=== PATIENT | female | born 1950 | race Caucasian/White ===

== ENCOUNTER 2016-07-16 10:16 | Inpatient (IN) | payer BC, OTHER ==
[~2016-07-16] VITALS: Ht 157.5 cm; Wt 65.3 kg
[2016-07-16] MEDS ORDERED: METF500T (10:50)
[2016-07-16] MEDS ORDERED: PRAV80TA2 (10:50)
[2016-07-16] MEDS ORDERED: NAPR500T2 (10:50)
[2016-07-16] MEDS ORDERED: ASMA110A (10:50)
[2016-07-16] MEDS ORDERED: DICY20TA11 (10:50)
[2016-07-16] MEDS ORDERED: MECL-68 (10:50)
[2016-07-16] MEDS ORDERED: OMEP20CA3 (10:50)
[2016-07-16] MEDS ORDERED: LOSA25TA8 (10:50)
[2016-07-16] MEDS ORDERED: FLUO20CA9 (10:50)
[2016-07-16] MEDS ORDERED: FLUT1SPR2 ×2 (10:50→14:17)
[2016-07-16] MEDS ORDERED: methylPREDNISolone INJ 125 MG/2 ML VIAL (J2930) IV ONE (11:45)
[2016-07-16] MEDS: IPRATROPIUM 0.5MG/ALBUTEROL 2.5MG INH SOL UD 3ML (DUONEB)(J7620) NEB PRN ×2 (12:08→12:29)
--- NOTE | 2016-07-16 12:08 | REP ---
Chest one-view HISTORY: Cough Comparison: None Increased density is present in the lower lobes consistent with bibasilar atelectasis or infiltrates. The heart is normal in size. The pulmonary vasculature is normal in appearance. Impression: Bibasilar atelectasis or infiltrates. Signed by Reginald Hart MD 07/16/2016 12:00 P
[2016-07-16 12:20] LABS: BASO % 0.6 % (0.0-1.0); EOS % 0.8 % (0.0-3.0); LARGE UNSTAINED CELL # 0.2 K/mm3 (0.0-0.4); LARGE UNSTAINED CELL % 3.2 % (0.0-4.0); LYMPH # 1.6 K/mm3 (1.5-4.5); LYMPH % 20.6 % (24.0-44.0); MEAN CORPUSCULAR HEMOGLOBIN 29.4 pg (27.0-33.0); MEAN CORPUSCULAR HGB CONC 32.8 g/dl (32.0-36.5); MEAN CORPUSCULAR VOLUME 89.6 fl (80.0-96.0); MONO # 0.3 K/mm3 (0.0-0.8); NEUTROPHILS # 4.8 K/mm3 (1.8-7.7); NEUTROPHILS % 69.8 % (36.0-66.0); PLATELET COUNT, AUTOMATED 233 k/mm3 (150-450); RED CELL DISTRIBUTION WIDTH 12.3 % (11.5-14.5); WHITE BLOOD COUNT 6.9 K/mm3 (4.0-10.0)
[2016-07-16 12:26] LABS: ABG BASE EXCESS -0.5 (-2.0-2.0); ABG HCO3 22.3 MEQ/L (22.0-26.0); ABG PARTIAL PRESSURE CO2 30.9 mmHg (35.0-45.0); ABG PARTIAL PRESSURE O2 83.1 mmHg (75.0-100.0); ABG TOTAL CO2 23.2 MEQ/L (23.0-31.0); ABG pH (ARTERIAL) 7.476 UNITS (7.350-7.450)
[2016-07-16 12:46] LABS: ALBUMIN 2.9 GM/DL (3.2-5.2); ALBUMIN/GLOBULIN RATIO 0.69 (1.00-1.93); ALKALINE PHOSPHATASE 129 U/L (45-117); ALT/SGPT 28 U/L (12-78); ANION GAP 11 MEQ/L (8-16); AST/SGOT 29 U/L (15-37); BILIRUBIN,DIRECT 0.2 MG/DL (0.0-0.2); BILIRUBIN,TOTAL 0.6 MG/DL (0.2-1.0); BLOOD UREA NITROGEN 18 MG/DL (7-18); CALCIUM LEVEL 8.2 MG/DL (8.8-10.2); CARBON DIOXIDE LEVEL 25 MEQ/L (21-32); CHLORIDE LEVEL 103 MEQ/L (98-107); CREATININE FOR GFR 0.92 MG/DL (0.55-1.02); GLOMERULAR FILTRATION RATE > 60.0 (>45); GLUCOSE, FASTING 187 MG/DL (80-110); POTASSIUM SERUM 3.5 MEQ/L (3.5-5.1); SODIUM LEVEL 139 MEQ/L (136-145); TOTAL PROTEIN 7.1 GM/DL (6.4-8.2)
[2016-07-16] MEDS ORDERED: ISOVUE-370 76% 100ML VIAL (Q9967) As Ordered ONE (12:56)
[2016-07-16] MEDS ORDERED: methylPREDNISolone INJ 125 MG/2 ML VIAL (J2930) IV SCH (14:00)
[2016-07-16] MEDS ORDERED: LevoFLOXacin IV 750 MG in APPROPRIATE DILUENT 1 EA IV ONE (14:15)
[2016-07-16] MEDS ORDERED: [UNRECOGNIZED DRUG - CODE] INH (14:17)
[2016-07-16] MEDS ORDERED: FLUO20CA8 PO (14:17)
[2016-07-16] MEDS ORDERED: BENT20TA PO (14:17)
[2016-07-16] MEDS ORDERED: CRAN1260 PO (14:22)
[2016-07-16] MEDS ORDERED: MECL-86 PO (14:22)
[2016-07-16] MEDS ORDERED: METF500T PO (14:22)
[2016-07-16] MEDS ORDERED: NAPR500T2 PO (14:22)
[2016-07-16] MEDS ORDERED: OMEP20CA3 PO (14:22)
[2016-07-16] MEDS ORDERED: PRAV80TA2 PO (14:22)
[2016-07-16] MEDS ORDERED: VITA200015 PO (14:22)
[2016-07-16] MEDS ORDERED: LOSA25TA8 PO (14:22)
--- NOTE | 2016-07-16 14:32 | REP ---
CT ANGIO CHEST: TECHNIQUE: Axial contrast enhanced images from the thoracic inlet to the upper abdomen using 100 mL Isovue 370 intravenous contrast material with multiplanar reformations. Extensive ground-glass opacities and interstitial opacities are seen bilaterally with evidence of peripheral honeycombing especially inferiorly and chronic fibrosis. There are bilateral bronchiectasis. The findings may simply be on a basis of chronic severe fibrosis but some degree of acute superimposed infiltrate cannot totally be excluded. There is no pleural or pericardial effusion. The heart does not appear to be significantly enlarged. There is no evidence of pulmonary embolism or aortic dissection. Thoracic aorta is normal in caliber. Small scattered lymph nodes are seen without significant mediastinal or hilar adenopathy. Tiny hypodensity in the left lobe of the liver may represent a tiny cyst but it is too small to characterize as it is less than 1 cm in diameter. 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 There is a left renal cyst. IMPRESSION: No evidence of pulmonary embolism. Severe fibrosis as discussed in detail above. Superimposed infiltrate in the lungs cannot totally be excluded. Signed by Garrett Keane MD 07/17/2016 04:43 P
[2016-07-16] MEDS ORDERED: DEXTROSE 50% 50 ML SYRINGE IV PRN (14:45)
[2016-07-16] MEDS ORDERED: IPRATROPIUM 0.5MG/ALBUTEROL 2.5MG INH SOL UD 3ML (DUONEB)(J7620) NEB PRN (14:45)
[2016-07-16] MEDS ORDERED: ACETAMINOPHEN TAB 650MG DOSE (2X325MG) PO PRN (14:45)
[2016-07-16] MEDS ORDERED: GLUCAGON FOR INJ 1 MG VIAL (J1610) SC PRN (14:45)
[2016-07-16] MEDS ORDERED: GLUCOSE 4 GM CHEW TABLET PO PRN (14:45)
[2016-07-16] MEDS ORDERED: NS 1,000 ML IV SCH (14:45)
--- NOTE | 2016-07-16 16:36 | HPEPDOC ---
General Date of Admission Jul 16, 2016 at 14:35 Chief Complaint The patient is a 65-year-old female Presented to the ER with complaints of shortness of breath and productive cough for 1 week duration. History of Present Illness Patient is a 65 year old female with a PMHx of COPD not on home oxygen , Vitamin D deficiency, GERD, DLP, DM2, HTN, Vertigo, IBS and arthritis who presented to the ER with complaints of increased shortness of breath with productive cough. She notes that over 1 week her SOB was worsening, associated with a productive cough with dark brown sputum. She notes that there is blood tinge to it as well which is new. She denies any fever or chills at home. She went to her physician in [place] and was found to be hypoxic in the office and was transferred her while on oxygen. Upon arrival to the ER she was taken off supplemental oxygen and she desaturated to 80%. She denies any lower extremity edema, inability to lay flat or waking up at night short of breath. She denies any chest pain or palpitations. She notes that she is compliant with her medications. Does not know when she last had a COPD exacerbation, but notes that she was diagnosed on 11/2015. She denies any recent viral illness. She denies any nausea, vomiting, abdominal pain, constipation, diarrhea or urinary symptoms. Home Medications Scheduled (Asmanex 7 Metered Doses) 110 Mcg/Inh Aer, 2 PUFFS INH BID, (Reported) Cholecalciferol (Vitamin D) 2,000 Unit Tab, 2,000 UNIT PO DAILY, (Reported) Cranberry (Cranberry Fruit Concentra) 12,600 Mg Cap, 12,600 MG PO DAILY, ( Reported) Dicyclomine HCl (Bentyl) 20 Mg Tab, 20 MG PO TID, (Reported) Fluoxetine Hcl (Fluoxetine) 20 Mg Cap, 20 MG PO DAILY, (Reported) Fluticasone Propionate (Fluticasone Propionate 0.05%) 120 [place]/16 Gm Naspr, 1 SPRAY NA DAILY, (Reported) PER NOSTRIL Losartan Potassium (Losartan Potassium) 25 Mg Tab, 25 MG PO QHS, (Reported) Meclizine HCl (Meclizine 25) 25 Mg Tab, 50 MG PO QHS, (Reported) Metformin Hydrochloride (Metformin HCl) 500 Mg Tab, 500 MG PO QHS, (Reported) Naproxen (Naproxen) 500 Mg Tab, 500 MG PO BID, (Reported) Omeprazole (Omeprazole) 20 Mg Cap, 20 MG PO BID, (Reported) Pravastatin Sodium (Pravastatin Sodium) 80 Mg Tab, 80 MG PO QHS, (Reported) Allergies Coded Allergies: Baclofen (Verified Allergy, Unknown, 07/16/16) Penicillins (Verified Allergy, Unknown, 07/16/16) Past Medical History Medical History COPD not on home oxygen, Vitamin D deficiency, GERD, DLP, DM2, HTN, Vertigo, IBS and arthritis Surgical History Tonsillectomy Appendectomy Hysterectomy Family History - Non-contributory Social History - Denies the use of alcohol or illicit drugs; Quit in 1990 Smoked since she was 17 at 1.5 ppd - Denies recent travel or sick contacts - Lives with daughter - Occupation: Prior restaurant cook / grocery - No exposure to asbestos or chemicals Review of Symptoms Other systems Constitutional: Denies weight loss, change in appetite, or recent trauma Eyes: No visual changes or eye pain Ears, Nose, Throat: Denies nose bleeds, or difficulty swallowing Cardiovascular: Denies chest pain, sweating, or orthopnea Respiratory: Positive cough, wheezing and shortness of breath GI: [place] nausea, vomiting, abdominal pain, diarrhea or constipation : Denies pain with urination or frequency Musculoskeletal: Denies joint pain or swelling Neuro / Psych: Denies muscle weakness or sensory loss Skin: No skin rashes noted All other review of systems negative; otherwise stated in history of present illness Vital Signs - Vitals: BP 140/75, HR 96, RR 20, Sat 95%NC2L, Temp 98.4F - General: Lying in bed, No acute distress, Speaking in full sentences, AAOx3 - HEENT: NC, AT, PERRLA, EOMI - CVS: Tachycardic, regular rhythm, +S1S2, - Lungs: Fair air entry bilaterally, Bilateral crackles / rhonchi appreciated, no wheezing noted at this time - Abdomen: Soft, Non-distended, Non-tender, + Bowel sounds x 4 - Extremities: + PPx4, No lower extremity edema, No calf tenderness - Neuro: No focal motor or sensory deficit - Skin: No visible rashes Laboratory Data Labs 24H Laboratory Tests 2 07/16/16 12:03: White Blood Count 6.9, Red Blood Count 4.03, Hemoglobin 11.8L, Hematocrit 36.1, Mean Corpuscular Volume 89.6, Mean Corpuscular Hemoglobin 29.4, Mean Corpuscular Hemoglobin Concent 32.8, Red Cell Distribution Width 12.3, Platelet Count 233, Neutrophils (%) (Auto) 69.8H, Lymphocytes (%) (Auto) 20.6L, Monocytes (%) (Auto) 5.0, Eosinophils (%) (Auto) 0.8, Basophils (%) (Auto) 0.6, Neutrophils # (Auto) 4.8, Lymphocytes # (Auto) 1.6, Monocytes # (Auto) 0.3, Eosinophils # (Auto) 0.0, Basophils # (Auto) 0.0, Large Unclassified Cells % 3.2 , Large Unclassified Cells # 0.2, D-Dimer, Quantitative 1448.7H, Anion Gap 11, Glomerular Filtration Rate > 60.0, Lactic Acid Level 2.6*H, Calcium Level 8.2L, Aspartate Amino Transf (AST/SGOT) 29, Alanine Aminotransferase (ALT/SGPT) 28, Alkaline Phosphatase 129H, Total Bilirubin 0.6, Direct Bilirubin 0.2, Total Creatine Kinase 95, Creatine Kinase MB 2.4, Creatine Kinase MB Relative Index 2.52, Troponin I 0.16H, B-Type Natriuretic Peptide 1540H, Total Protein 7.1, Albumin 2.9L, Albumin/Globulin Ratio 0.69L, Thyroid Stimulating Hormone (TSH) 1.300 07/16/16 12:09: Blood Gas Bicarbonate Standard 24.0, Arterial Blood pH 7.476H, Arterial Blood Partial Pressure CO2 30.9L, Arterial Blood Partial Pressure O2 83.1, Arterial Blood Total CO2 23.2, Arterial Blood HCO3 22.3, Arterial Blood Base Excess -0.5 , Arterial Blood Oxygen Saturation 95.5 07/16/16 14:34: Total Creatine Kinase 96, Creatine Kinase MB 2.3, Creatine Kinase MB Relative Index 2.39, Troponin I 0.17H 07/16/16 16:25: CBC/BMP Laboratory Tests 07/16/16 12:03 Red Blood Count 4.03, Mean Corpuscular Volume 89.6, Mean Corpuscular Hemoglobin 29.4, Mean Corpuscular Hemoglobin Concent 32.8, Red Cell Distribution Width 12.3 , Neutrophils (%) (Auto) 69.8 H, Lymphocytes (%) (Auto) 20.6 L, Monocytes (%) ( Auto) 5.0, Eosinophils (%) (Auto) 0.8, Basophils (%) (Auto) 0.6, Neutrophils # ( Auto) 4.8, Lymphocytes # (Auto) 1.6, Monocytes # (Auto) 0.3, Eosinophils # (Auto ) 0.0, Basophils # (Auto) 0.0 Microbiology Microbiology 07/16/16 Blood Culture, Received Pending 07/16/16 Blood Culture, Received Pending 07/16/16 Influenza Virus Type A Antigen - Final, Complete 07/16/16 Influenza Virus Type B Antigen - Final, Complete Plan / VTE VTE Prophylaxis Ordered?: Yes Plan Plan Dyspnea likely 2/2 acute hypoxic respiratory failure possibly 2/2 acute COPD exacerbation, possibly Community acquired pneumonia - Presented with worsening shortness of breath and productive cough; no reported fevers - Physical reveals bilateral ronchi / crackles, afebrile - WBC not elevated - CXR 07/16: bibasilar atelectasis or infiltrates - CTA 07/16: no evidence of PE, severe fibrosis, superimposed infiltrate in the lungs cannot totally be excluded - Will c/w inhaled therapy with duoneb and Advair - Will c/w solumedrol and Levaquin Hemoptysis possibly 2/2 COPD exacerbation or pneumonia - will monitor for now Elevated troponin likely 2/2 hypoxia, less likely 2/2 NSTEMI - EKG without change - Troponin has remained stable - Will continue to trend Elevated lactic acid - possibly 2/2 hypoxia - Will give gentle IV fluid hydration - Will follow up repeat Lactic acid Vitamin D deficiency - c/w vitamin D supplementation DLP - c/w statin DM2 - will start ISS HTN - c/w Losartan Vertigo - c/w Cetirizine IBS - c/w Dicyclomine Arthritis - c/w Tylenol prn GERD - c/w protonix DVT prophylaxis - Will start SCDs (re: Hemoptysis) JAGUAR BANEGAS MD Jul 16, 2016 16:36
[2016-07-16] MEDS: HumaLOG INSULIN (NovoLOG) PER UNIT SC SCH ×2 (17:30→21:17)
[2016-07-16] MEDS ORDERED: ENOXAPARIN 40 MG/0.4 ML SYRINGE (J1650) SC SCH (18:00)
[2016-07-16] MEDS: FLUTICASONE PROP 0.05% NASAL SPRAY 16 GM (FLONASE) SCH (18:25)
[2016-07-16] MEDS: FLUoxetine 20 MG CAP PO SCH (18:28)
[2016-07-16] MEDS: PANTOPRAZOLE 40MG TAB (PROTONIX) PO SCH (18:28)
[2016-07-16] MEDS: VITAMIN D 1,000 INTERNATIONAL UNITS TABLET PO SCH (18:29)
[2016-07-16] MEDS: MECLIZINE 25 MG TABLET PO SCH (20:57)
[2016-07-16] MEDS: PRAVASTATIN 20 MG TAB PO SCH (20:57)
[2016-07-16] MEDS: LOSARTAN 25 MG TAB PO SCH (20:58)
[2016-07-16] MEDS: methylPREDNISolone INJ 125 MG/2 ML VIAL (J2930) IV SCH (21:10)
[2016-07-16] MEDS: ADVAIR DISKUS 250/50 INH PWD INH SCH (21:17)
[2016-07-16] MEDS: IPRATROPIUM 0.5MG/ALBUTEROL 2.5MG INH SOL UD 3ML (DUONEB)(J7620) NEB SCH (21:17)
[2016-07-16 21:45] VITALS: BP 122/74
[2016-07-17] VITALS (8 sets, daily range): BP systolic 122–147; BP diastolic 59–82; O2SAT 91
[2016-07-17] MEDS: IPRATROPIUM 0.5MG/ALBUTEROL 2.5MG INH SOL UD 3ML (DUONEB)(J7620) NEB SCH ×4 (01:30→18:39)
[2016-07-17] MEDS: methylPREDNISolone INJ 125 MG/2 ML VIAL (J2930) IV SCH ×3 (05:12→21:42)
[2016-07-17 07:24] LABS: BASO % 0.2 % (0.0-1.0); EOS % 0.2 % (0.0-3.0); LARGE UNSTAINED CELL # 0.2 K/mm3 (0.0-0.4); LARGE UNSTAINED CELL % 2.6 % (0.0-4.0); LYMPH % 13.6 % (24.0-44.0); MEAN CORPUSCULAR HEMOGLOBIN 30.2 pg (27.0-33.0); MEAN CORPUSCULAR HGB CONC 33.9 g/dl (32.0-36.5); MEAN CORPUSCULAR VOLUME 89.1 fl (80.0-96.0); MONO # 0.2 K/mm3 (0.0-0.8); MONO % 3.3 % (0.0-5.0); NEUTROPHILS # 5.6 K/mm3 (1.8-7.7); NEUTROPHILS % 80.2 % (36.0-66.0); PLATELET COUNT, AUTOMATED 231 k/mm3 (150-450); RED CELL DISTRIBUTION WIDTH 12.3 % (11.5-14.5)
[2016-07-17 07:52] LABS: ALBUMIN 2.6 GM/DL (3.2-5.2); ALBUMIN/GLOBULIN RATIO 0.67 (1.00-1.93); ALKALINE PHOSPHATASE 107 U/L (45-117); ALT/SGPT 23 U/L (12-78); ANION GAP 9 MEQ/L (8-16); AST/SGOT 21 U/L (15-37); BILIRUBIN,TOTAL 0.5 MG/DL (0.2-1.0); BLOOD UREA NITROGEN 18 MG/DL (7-18); CALCIUM LEVEL 8.3 MG/DL (8.8-10.2); CARBON DIOXIDE LEVEL 24 MEQ/L (21-32); CHLORIDE LEVEL 104 MEQ/L (98-107); CREATININE FOR GFR 0.76 MG/DL (0.55-1.02); GLOMERULAR FILTRATION RATE > 60.0 (>45); GLUCOSE, FASTING 270 MG/DL (80-110); MAGNESIUM LEVEL 1.5 MG/DL (1.8-2.4); SODIUM LEVEL 137 MEQ/L (136-145); TOTAL PROTEIN 6.5 GM/DL (6.4-8.2)
[2016-07-17] MEDS: ADVAIR DISKUS 250/50 INH PWD INH SCH ×3 (08:14→19:38)
[2016-07-17 08:25] LABS: ABG BASE EXCESS -2.3 (-2.0-2.0); ABG HCO3 20.3 MEQ/L (22.0-26.0); ABG PARTIAL PRESSURE CO2 28.4 mmHg (35.0-45.0); ABG PARTIAL PRESSURE O2 75.9 mmHg (75.0-100.0); ABG STANDARD HCO3 22.5 MEQ/L (22.0-26.0); ABG TOTAL CO2 21.2 MEQ/L (23.0-31.0); ABG pH (ARTERIAL) 7.472 UNITS (7.350-7.450)
--- NOTE | 2016-07-17 08:39 | REP ---
Portable chest, single AP view, patient sitting: Comparisons 07/16/2016. There is diffuse bilateral interstitial coarsening. This could represent chronic interstitial lung disease, acute interstitial infiltrates, or combination. There are no focal infiltrates. No pleural effusions. Cardiac size normal. The gregory, mediastinum, and bony thorax are unremarkable. Impression: Interstitial coarsening, chronic versus acute. Signed by Garrett Arellano MD 07/17/2016 08:30 A
[2016-07-17] MEDS: FLUTICASONE PROP 0.05% NASAL SPRAY 16 GM (FLONASE) SCH (09:12)
[2016-07-17] MEDS: FLUoxetine 20 MG CAP PO SCH (09:12)
[2016-07-17] MEDS: PANTOPRAZOLE 40MG TAB (PROTONIX) PO SCH (09:14)
[2016-07-17] MEDS: VITAMIN D 1,000 INTERNATIONAL UNITS TABLET PO SCH (09:14)
--- NOTE | 2016-07-17 09:15 | ECGEPIP ---
Stationary ECG Study [facility] - ED Test Date: 2016-07-16 Pat Name: NGUYEN SHANKAR Department: Room: - Gender: F General Medical Practitioner: daksha : 1950 Requested By: Cb Aranda Order Number: [id number] Reading MD: Che Carpenter Measurements Intervals [place] Rate: 88 P: 21 UT: 130 QRS: 5 QRSD: 81 T: -44 QT: 374 QTc: 454 Interpretive Statements SINUS RHYTHM ST DEVIATION AND MODERATE T-WAVE ABNORMALITY, CONSIDER ANTERIOR ISCHEMIA ST DEVIATION AND MODERATE T-WAVE ABNORMALITY, CONSIDER INFERIOR ISCHEMIA CLINICAL CORRELATION REQUIRED NO PRIOR FOR COMPARISON Electronically Signed On 07-17-2016 9:15:19 EDT by Che Carpenter
--- NOTE | 2016-07-17 09:18 | ECGEPIP ---
Stationary ECG Study [facility] - ED Test Date: 2016-07-16 Pat Name: NGUYEN SHANKAR Department: Room: [place] [address] Gender: F Industrial/Organizational Psychologist: MANJU : 1950 Requested By: Cb Aranda Order Number: [id number] Reading MD: Che Carpenter Measurements Intervals [place] Rate: 95 P: 40 TN: 138 QRS: 17 QRSD: 85 T: -45 QT: 389 QTc: 491 Interpretive Statements SINUS RHYTHM MODERATE T-WAVE ABNORMALITY, CONSIDER ANTEROLATERAL ISCHEMIA MODERATE T-WAVE ABNORMALITY, CONSIDER INFERIOR ISCHEMIA SIMILAR 07/16/16 12:07 Electronically Signed On 07-17-2016 9:18:51 EDT by Che Carpenter
[2016-07-17] MEDS: HumaLOG INSULIN (NovoLOG) PER UNIT SC SCH ×4 (09:45→21:00)
[2016-07-17] MEDS ORDERED: FUROSEMIDE 40 MG/4 ML VIAL (J1940) IV ONE ×2 (10:00→17:30)
[2016-07-17] MEDS: MAG SULF 1GM/100ML (MAG RUN) 1 GM in APPROPRIATE DILUENT 1 EA IV SCH ×3 (10:20→12:00)
[2016-07-17] MEDS: LevoFLOXacin IV 750 MG in APPROPRIATE DILUENT 1 EA IV SCH (14:38)
--- NOTE | 2016-07-17 16:06 | ECGEPIP ---
Stationary ECG Study [facility] Test Date: 2016-07-17 Pat Name: NGUYEN SHANKAR Department: Room: [place] [address] Gender: F Developer Advocate: : 1950 Requested By: EMMA Nj Order Number: [id number] Reading MD: Jace Da Silva Measurements Intervals [place] Rate: 87 P: 31 [place]: 132 QRS: 11 QRSD: 94 T: -41 QT: 409 QTc: 493 Interpretive Statements Normal sinus rhythm Nonspecific ST-T wave abnormalities No significant change when compared to prior tracing of 07/16/2016 Electronically Signed On 07-17-2016 16:06:40 EDT by Jace Da Silva
[2016-07-17] MEDS ORDERED: ASPIRIN 325 MG TAB PO ONE (18:45)
--- NOTE | 2016-07-17 19:09 | CR ---
DATE OF CONSULTATION: 07/17/2016 REFERRING PHYSICIANS: Dr. Billingsley and Dr. Sharma. INDICATION: Elevated troponin, abnormal electrocardiogram (ECG), shortness of breath. HISTORY OF PRESENT ILLNESS: Mrs. Pratt is previously unknown to me. She is a 65-year-old female who came to emergency room because of severe dyspnea. She actually was seen initially by her primary care physician and because of profound hypoxemia, she was sent to emergency room. On presentation there, her oxygen on room air was only in 70s and is mostly in 80s and low 90s on supplemental oxygen by nasal cannula. She did not have any chest discomfort and she does report somewhat productive cough which has been chronic. The evaluation included ECG that revealed T-wave inversions both in inferior as well as precordial leads. There was marginally elevated troponin without any appreciable trend. Consequently cardiology consultation was called. On my evaluation, she tells me that she is feeling little bit better but not significantly so. She does not feel overly short of breath at rest but she is extremely limited with activity. This is not new. She reports that her exertional dyspnea started approximately three years ago but has been getting progressively worse, and in the last six months it has been virtually impossible for her to cross the road to visit a relative who lives on the opposite side of the street. She reports further deterioration in the last week after she took a trip with a friend to [place] and then [place]. She denies any orthopnea. It is not difficult for her to lie flat even though she usually does not like to because of vertigo. She did not notice any peripheral edema, palpitations or chest discomfort. PAST MEDICAL HISTORY: 1. Gastroesophageal reflux disease (GERD). 2. Type 2 diabetes. 3. Hypertension. 4. Vertigo. 5. Irritable bowel syndrome. 6. Supposed chronic obstructive pulmonary disease (COPD), even though I do not believe it is likely. PAST SURGICAL HISTORY: Tonsillectomy, appendectomy and hysterectomy. HOME MEDICATIONS: - Asmanex - vitamin D - Bentyl 20 mg three times a day - fluoxetine 20 mg a day - fluticasone nasal spray - losartan 25 at night - meclizine 25 at night - metformin 500 at night - naproxen 500 twice a day - omeprazole 20 twice a day - pravastatin 80 mg at night. ALLERGIES: She reports allergies to BACLOFEN and PENICILLIN. SOCIAL HISTORY: The patient used to smoke but quit in 1990. She lives with her daughter and grandson. She has four dogs. She has been disabled due to back pain since . FAMILY HISTORY: She denies any first-degree relatives with sudden cardiac or early coronary artery disease. REVIEW OF SYSTEMS: She denies any recent fever, chills. She has had a cough productive of somewhat brownish sputum at times. No chest pain. No palpitations. No syncope nor near-syncope. No abdominal pain. No recent diarrhea, nausea or vomiting. No peripheral edema. No neurologic symptoms and no rash. PHYSICAL EXAMINATION: Mrs. Pratt is a white female who appears approximately her age. She does not appear to be in any distress and she is able to talk to me in full sentences. LAST VITAL SIGNS: Blood pressure 129/72, heart rate has been from 80s to 90s to low 100s, even though initially on presentation she was a lot more tachycardiac than that. She is afebrile. Saturation is 92% on 4-6 liters of oxygen by nasal cannula. Weight is documented 68.2 kg. NECK: Her jugular venous pulse (JVP) is flat. LUNGS: Reveal bilateral Velcro pattern type of crackles throughout lung garcia. HEART: Exam reveals somewhat muffled heart sounds but is regular. I do not appreciate gallop, rub or murmur. ABDOMEN: Soft without tenderness or rebound tenderness. EXTREMITIES: Are free of edema. Peripheral pulses are palpabl. SKIN: No skin lesions. NEUROLOGIC: She has no focal weakness. Her speech and thought process are intact. LABORATORY DATA: CBC as of this morning, hemoglobin 10.9, hematocrit 32, platelet count 231,000, WBC count 7. Basic metabolic panel at 07:13 this morning is normal but for glucose 270. Her lactic acid last the evening was 2.6, is down to 1.1 today. Magnesium was 1.5. She had several troponins done without appreciable trend. The initial one was 0.16. The second one was 0.17, then 0.16 again, and eventually 0.13. Albumin is 2.6. Liver function tests normal. She had little bit of elevated lactate level yesterday 2.6, 2.4 and 2.6 again, and this morning is 1.1. TSH was within normal range. Blood gases on admission on 07/16: A pH was 7.47, pCO2 31 pO2 83. It is not completely clear on how much oxygen and this is on. Her ECG: She already had multiple ECGs. They are all virtually identical and reveal sinus rhythm with diffuse T-wave inversions, most apparent in precordial and inferior leads. She had chest x-ray and CT angiography of the chest. The most informative is CT angiography that revealed no evidence for pulmonary embolism, but there are diffuse fibrotic changes and bronchiectasis. ASSESSMENT AND PLAN: Mrs. Pratt is a 65-year-old female who has had chronic dyspnea of approximately three-year duration that has been getting progressively worse to the point that she could not ambulate 200 feet as of six months ago, and further deteriorated in the last week after a trip to [facility]. Pulmonary embolism was ruled out but she clearly has very prominent interstitial changes on her chest x-ray. Even though her BNP is elevated, I do not believe that she has congestive heart failure on clinical grounds. Her JVP is not elevated. She has no peripheral edema and the chest x-ray and CT are certainly not consistent with congestive heart failure. She has a typical Velcro type of crackles on physical exam which are pathognomic for interstitial lung disease. I am going to obtain an echocardiogram because she certainly could have pulmonary hypertension, even though of my suspicion is not overly high. As far as the troponin elevation is concerned, and these abnormalities of EKG, I suspect this is all strain related due to hypoxemia and possibly pulmonary strain as well. The echocardiogram will be quite informative. In the interim, I am going to give her just aspirin. I suggest that she does not get more diuretics as it seems unlikely that this is the underlying problem. She has been chronically on the low-dose angiotensin II receptor blockers (ARB) and statin and this might be continued. I recommend that she had gets pulmonary consult which I believe that this is her principal problem. MICHELET
--- NOTE | 2016-07-17 20:36 | IPN ---
DATE: 07/17/2016 SUBJECTIVE: This is a 65-year-old female who is seen and examined in the ER. Patient was admitted overnight for shortness of breath. Patient was diagnosed with chronic obstructive pulmonary disease many years ago, and at baseline has shortness of breath with exertion. However, she noticed that her shortness of breath worsened approximately a week ago. She recently went on a 14 hour car ride to [facility], and on her way back she started developing worsening shortness of breath. Reportedly, had productive cough with brown sputum earlier, which she currently denies. At baseline, was able to walk approximately a mile before getting short of breath, however recently in the last few days can barely walk 10 to 50 feet without difficulty breathing. Because of her worsening symptoms, she presented to her primary care provider, Agatha Logan at [facility], and she was immediately transferred to the ER for further evaluation. She desat down to 80% on air. Overnight, she was given steroid and antibiotic. Reported some relief of symptoms regarding her shortness of breath. However, early this morning as the nurse was trying to sit her in a chair, she desat down to the 60s. At that time, she was on nasal cannula but was then immediately put on a VentiMask. Since being on VentiMask, she has been fluctuating in the 90s. She denies similar episodes in the past. There have been no new medications. She attributes her symptoms to pollen and the weather in [place] and [place]. Denies paroxysmal or nocturnal dyspnea, pillow orthopnea, chest pain, palpitations or thrills. Does not follow with a clip loading machine adjuster for her pulmonary condition. PHYSICAL EXAMINATION: VITAL SIGNS: This morning blood pressure 122/80, heart rate 97, temperature 97.8 , respiration rate 18, pulse oximetry 88%,later 93% on 4 liters nasal cannula. GENERAL: Patient is lying in bed at approximately 30 degree angle , comfortable. No respiratory distress. Alert, awake, cooperative. HEENT: Normocephalic, atraumatic. Moist oral mucosa. Currently wearing Venturi mask. Good dentition. Eyes: Extraocular movement intact. Pupils equal, round, reactive to light. NECK: Supple. Trachea midline. No jugular venous distention. CHEST: Symmetric chest rise with no accessory muscle. Breath sounds coarse bilateral lung garcia with crepitations. HEART : Regular rate and rhythm with normal S1 and S2. ABDOMEN: Is soft, nontender, nondistended. Bowel sounds present. No guarding. No rebound. EXTREMITY: No pedal edema. Pedal pulses present bilaterally. NEURO: Sensory intact. Strength 5/5 in all extremities. PSYCHIATRIC: Pleasant, cooperative. No psychiatric distress. LABORATORY DATA: WBC 7, Hemoglobin 10.9, hematocrit 32.2, platelets 231, sodium 137, potassium 4, chloride 104, carbon dioxide 24, BUN 18, creatinine 6, glucose 127, lactic acid 1.1, earlier was 2.6, calcium 8.6, magnesium 1.5, total bilirubin normal. Troponin 0.13. Albumin 2.6. Highest troponin 0.17. Blood cultures negative after 24 hours. Influenza negative. Chest x-ray this morning showed chronic but no focal infiltrates or effusions. CTA showed no evidence of PE. Extensive ground glass opacity bilaterally with honeycombing inferiorly and chronic fibrosis bilateral bronchiectasis. Electrocardiogram on admission showed moderate T-wave abnormality in anterior, lateral and inferior leads. IMPRESSION AND PLAN: Mr. Pratt is a pleasant 65-year-old female with history of diabetes, hypertension, hyperlipidemia, chronic obstructive pulmonary disease; not home oxygen dependent, who was brought into the ER yesterday for worsening shortness of breath found to be hypoxic. 1. Acute hypoxic respiratory failure. Etiology unclear. She was started on empiric for chronic obstructive pulmonary disease exacerbation and also community acquired pneumonia. However, her symptoms worsened earlier today by desating down to 60% on VentiMask. Patient at baseline does not use oxygen supplementation. CTA was unrevealing for pulmonary embolism (PE), though it did show chronic interstitial fibrotic changes. However symptoms presented rather acutely and it was after her trip. She did have electrocardiogram abnormality, also mild troponin leakage. Possible cause for her acute respiratory failure include chronic obstructive pulmonary disease versus chemical pneumonitis versus and infectious versus cardiac. At this time, infectious is unlikely as she does not have a white count and she denies productive sputum and is afebrile. We will continue with steroid treatment, oxygen supplementation. Also, because of her abnormal electrocardiogram, mild troponin leak, and her severe hypoxia we have also reached out to cardiology for assistance to evaluate for possible underlying acute coronary syndrome contributing to her symptoms as she does have her risk factors such as age, history of diabetes, along with hyperlipidemia and hypertension. We will follow up recommendations. Have ordered respiratory panel and also sputum culture. In the meantime, we will continue Solu-Medrol, Levaquin, nebulizers scheduled and as needed along with Advair twice a day. Because of her elevated BNP the patient we also tried Lasix times one this morning, although she does not appear to be in fluid overload. 2. Elevated troponin and abnormal electrocardiogram. Has been trending down. With her multiple risk factors, we have reached out to Dr. Medellin for assistance as mentioned above. 3. Elevated lactic acid. This is resolved. Believed secondary to her hypoxic episode. She is no longer on IV fluid at this time. 4. Vitamin D deficiency. Continue Vitamin D supplementation. 5. Type 2 diabetes. She is on metformin as outpatient. Patient is on a insulin sliding scale while inpatient. 6. Hypotension. She is on her home dose of losartan. 7. Hyperlipemia. Continue statin therapy. 8. Depression. Continue Prozac 20 mg daily. 9. Deep vein thrombosis prophylaxis. Sequential compression devices (SCDs) and thromboembolic deterrent stockings (TEDS). My preceptor for this patient encounter was Dr. Marisa Billingsley. The preceptor was physically present in the building during the encounter and was fully available as needed. All aspects of the patient interview, examination, medical decision making process, and medical care plan development were reviewed and approved by the preceptor. The preceptor is aware and concurs with the plan as stated in the body of this note and will attest to such by his/her co-signature. MICHELET
[2016-07-17] MEDS: OSELTAMIVIR PHOSPHATE 75 MG CAP (TAMIFLU) PO SCH (21:42)
[2016-07-17] MEDS: LOSARTAN 25 MG TAB PO SCH (21:42)
[2016-07-17] MEDS: MECLIZINE 25 MG TABLET PO SCH (21:42)
[2016-07-17] MEDS: PRAVASTATIN 20 MG TAB PO SCH (21:42)
[2016-07-18] MEDS: IPRATROPIUM 0.5MG/ALBUTEROL 2.5MG INH SOL UD 3ML (DUONEB)(J7620) NEB SCH ×4 (01:28→18:53)
[2016-07-18 04:00] VITALS: BP 121/74
[2016-07-18] MEDS: methylPREDNISolone INJ 125 MG/2 ML VIAL (J2930) IV SCH ×3 (05:43→21:27)
[2016-07-18 06:17] LABS: EOS % 0.1 % (0.0-3.0); LARGE UNSTAINED CELL # 0.1 K/mm3 (0.0-0.4); LARGE UNSTAINED CELL % 1.2 % (0.0-4.0); LYMPH # 0.8 K/mm3 (1.5-4.5); LYMPH % 6.7 % (24.0-44.0); MEAN CORPUSCULAR HEMOGLOBIN 30.3 pg (27.0-33.0); MEAN CORPUSCULAR HGB CONC 33.6 g/dl (32.0-36.5); MEAN CORPUSCULAR VOLUME 90.1 fl (80.0-96.0); MONO # 0.4 K/mm3 (0.0-0.8); MONO % 2.9 % (0.0-5.0); NEUTROPHILS # 10.8 K/mm3 (1.8-7.7); NEUTROPHILS % 89.1 % (36.0-66.0); PLATELET COUNT, AUTOMATED 295 k/mm3 (150-450); RED CELL DISTRIBUTION WIDTH 12.4 % (11.5-14.5); WHITE BLOOD COUNT 12.1 K/mm3 (4.0-10.0)
[2016-07-18 06:31] LABS: ALBUMIN 2.6 GM/DL (3.2-5.2); ALBUMIN/GLOBULIN RATIO 0.58 (1.00-1.93); ALKALINE PHOSPHATASE 110 U/L (45-117); ALT/SGPT 22 U/L (12-78); ANION GAP 10 MEQ/L (8-16); AST/SGOT 15 U/L (15-37); BILIRUBIN,TOTAL 0.5 MG/DL (0.2-1.0); BLOOD UREA NITROGEN 25 MG/DL (7-18); CALCIUM LEVEL 8.2 MG/DL (8.8-10.2); CARBON DIOXIDE LEVEL 28 MEQ/L (21-32); CHLORIDE LEVEL 97 MEQ/L (98-107); CREATININE FOR GFR 0.98 MG/DL (0.55-1.02); GLOMERULAR FILTRATION RATE > 60.0 (>45); GLUCOSE, FASTING 356 MG/DL (80-110); MAGNESIUM LEVEL 2.4 MG/DL (1.8-2.4); POTASSIUM SERUM 3.6 MEQ/L (3.5-5.1); SODIUM LEVEL 135 MEQ/L (136-145); TOTAL PROTEIN 7.1 GM/DL (6.4-8.2)
[2016-07-18 07:30] VITALS: BP 120/77
[2016-07-18] MEDS: ADVAIR DISKUS 250/50 INH PWD INH SCH ×2 (07:32→22:07)
[2016-07-18] MEDS: FLUoxetine 20 MG CAP PO SCH (08:10)
[2016-07-18] MEDS: HumaLOG INSULIN (NovoLOG) PER UNIT SC SCH ×4 (08:10→20:37)
[2016-07-18] MEDS: PANTOPRAZOLE 40MG TAB (PROTONIX) PO SCH (08:10)
[2016-07-18] MEDS: OSELTAMIVIR PHOSPHATE 75 MG CAP (TAMIFLU) PO SCH ×2 (08:11→20:25)
[2016-07-18] MEDS: ASPIRIN 81 MG ENTERIC TAB PO SCH (08:11)
[2016-07-18] MEDS: VITAMIN D 1,000 INTERNATIONAL UNITS TABLET PO SCH (08:11)
[2016-07-18] MEDS: FLUTICASONE PROP 0.05% NASAL SPRAY 16 GM (FLONASE) SCH (08:13)
--- NOTE | 2016-07-18 08:52 | IPN ---
DATE: 07/18/2016 Mrs. Pratt is feeling a little better today. She was able to sleep. She feels that she is not as congested and shortness of breath is less as well. Vital signs: Blood pressure 120/77, heart rate is in 70s to 90s. She is afebrile. Saturation is 99% on 4 liters of nasal cannula. Fluid balance yesterday was slightly negative. Weight has not been documented this morning as yet. She is alert and oriented and appropriate. She is able to talk in full sentences. Her jugular venous pressure is not up. Lungs still reveal bilateral fine end inspiratory crackles of Velcro quality. I do not appreciate any wheezing. Heart exam is unchanged. Somewhat muffled heart sounds, but I do not appreciate any murmur, gallop or rub. Abdomen is soft and nontender. There is no peripheral edema. LABORATORY CBC: WBC count 12,000, hemoglobin 11.9, hematocrit 35, platelet count 295,000. Basic metabolic panel is essentially normal. EKG is unchanged. It reveals sinus rhythm. There are still precordial and inferior wall T-wave inversions, the difference since yesterday is fairly minimal. ASSESSMENT AND PLAN: Mrs. Pratt is a 65-year-old female who has a long-standing history of gradually progressive dyspnea that deteriorated last week. She actually tested positive for flu and that is likely what is the acute illness. I suspect that her EKG abnormalities are chronic. I am not quite sure what is the etiology, she certainly will need some further evaluation on outpatient basis. At this point, I am still waiting for an echocardiogram, mostly to assess her LV systolic function, which I suspect is going to be normal and also pulmonary artery pressure. We could make adjustment in her management depending on findings. In the interim, I would just continue aspirin and supportive treatment. Dr. Isabel is systems administration analyst this weekend.
--- NOTE | 2016-07-18 11:36 | REP ---
CHEST, PORTABLE: AP portable view of the chest is performed and compared to prior studies of 07/16/2016 and 07/17/2016. Diffuse interstitial opacities are stable. No new infiltrates are seen. The cardiomediastinal silhouette is unchanged. IMPRESSION: Stable exam. Signed by Garrett Keane MD 07/18/2016 04:38 P
[2016-07-18] MEDS: FUROSEMIDE 40 MG/4 ML VIAL (J1940) IV SCH ×2 (11:59→18:09)
[2016-07-18 12:00] VITALS: BP 112/65
--- NOTE | 2016-07-18 14:32 | IPN ---
DATE: 07/18/2016 SUBJECTIVE: This is a 65-year-old female who is seen and examined in progressive care unit (PCU) room. She was moved to PCU last night from the emergency department (ED). Overnight, while she was getting out of bed to urinate, the patient reportedly desaturated down to the 80s. She was by Dr. Medellin and was started on aspirin. She has an echocardiogram order pending at this time. She was also found to have influenza positive and was started on Tamiflu. This morning, while getting her to the bathroom, she again desaturated down to the 50s and 60s. She has no event on telemetry. Currently, denies any chest pain, palpitations, productive cough, fevers, chills, nausea, vomiting, diarrhea, or constipation. Reports shortness of breath with ambulation. The patient does not normally sleep flat due to her dizziness from her chronic vertigo but not because of her shortness of breath. OBJECTIVE: VITAL SIGNS: Blood pressure 120/77, heart rate 75, respiration rate documented at 10, pulse oximetry 99% on four liters nasal cannula. INTAKE AND OUTPUT THE LAST 24 HOURS: 1170 and 1800. One bowel movement documented. She is net negative of 630. GENERAL: Patient is lying in bed at a 45 degree angle, comfortable, in no acute distress. She is alert, awake and oriented to person, place and time, has mild accessory muscle use. She is able to talk in complete sentences. HEENT: Eyes: Extraocular movement intact. Pupils are equal and reactive to light. Mouth: Most oral mucosa without thrush or lesions appreciated. NECK: Supple. Trachea midline. No jugular venous distention (JVD). CHEST: Symmetric chest rise with accessory muscle. Breath sounds with crackles bilateral lung bases. There is dullness to percussion. HEART : Distant but regular rate and rhythm. Did not appreciate any murmurs, rubs, or gallops. ABDOMEN: Soft, nontender, nondistended. Bowel sounds present. No guarding. No rebound. EXTREMITIES: No pedal edema. Pedal pulses present bilaterally. NEUROLOGIC: No focal deficits appreciated. PSYCHIATRIC: Normal affect. LABORATORY DATA: WBC 12.1, hemoglobin 11.9, hematocrit 35.3, platelets 295, neutrophil 89.1. Sodium 135, potassium 3.6, chloride 97, carbon dioxide 28, BUN 25, creatinine 0.98, glucose 356, calcium 8.2, magnesium 2.4, total protein 7.1. Respiratory viral panel positive for influenza. IMPRESSION AND PLAN: Ms. Pratt is a pleasant 65-year-old female with history of tobacco abuse, diabetes, hypertension, chronic obstructive pulmonary and disease (COPD) who presented with acute shortness of breath. 1. Acute hypoxic respiratory failure. Yesterday, because of her elevated brain natriuretic peptide (BNP), the patient received two doses of IV Lasix and had made appropriate amount of urine and since then continues to have a negative net output. Her respiratory panel returned positive viral infection. It is possible that it was the viral illness that contributed to her respiratory decompensation. Case discussed with both Dr. Medellin and later Dr. Hall. At this time, it is believed that her acute shortness of breath is less likely to be an acute coronary event and per Dr. Medellin, her EKG changes might be more of a chronic abnormality. Also discussed the case briefly with Dr. Hall. At this time, it is recommended that we continue with diureses and monitor her status. It is encouraging that she did report improvement in her respiratory status after Lasix administration. We have repeated her BNP and also chest x-ray for reevaluation per recommendation. 2. Elevated troponin and abnormal electrocardiogram. Greatly appreciate Dr. Medellin's assistance. It appears that this might be her chronic EKG changes. 3. Elevated lactic acid. Resolved. No intervention needed at this time. 4. Vitamin D deficiency. Continue vitamin D supplementation. 5. Type 2 diabetes, on metformin outpatient. Her fingersticks are slowly increasing, likely secondary to steroid use for her respiratory symptoms. Continue to monitor. 6. Leukocytosis. White count is improved today compared to yesterday. Likely secondary to steroid use as mentioned above. She is also currently on Tamiflu. 7. Hypertension. Blood pressure is reasonable. Continue losartan. We have also started her on Lasix with hold parameters to help assist with diuresis which hopefully will help with her respiratory status. 8. Hyperlipemia. Continue statin. 9. Depression. Continue Prozac 20 mg daily. 10. Deep vein thrombosis prophylaxis. Sequential compression devices (SCDs) and thromboembolic deterrent stockings (TEDS). Patient will be started on heparin as she does not have any acute evidence of bleeding. Hemoglobin is improved. DISPOSITION: Due to the patient's acute hypoxic event this morning, she will be continued to be monitored closely in the progressive care unit (PCU). My preceptor for this patient encounter was Dr. Marisa Billingsley. The preceptor was physically present in the building during the encounter and was fully available as needed. All aspects of the patient interview, examination, medical decision making process, and medical care plan development were reviewed and approved by the preceptor. The preceptor is aware and concurs with the plan as stated in the body of this note and will attest to such by his/her co-signature. MICHELET
[2016-07-18] MEDS: HEPARIN SOD (PORCINE) 5000 UNITS/ML VIAL SQ SCH ×2 (14:38→20:24)
[2016-07-18] MEDS: LevoFLOXacin IV 750 MG in APPROPRIATE DILUENT 1 EA IV SCH (14:38)
[2016-07-18 16:00] VITALS: BP 109/58
[2016-07-18 20:00] VITALS: BP 130/66
[2016-07-18] MEDS: PRAVASTATIN 20 MG TAB PO SCH (20:24)
[2016-07-18] MEDS: MECLIZINE 25 MG TABLET PO SCH (20:24)
[2016-07-18] MEDS: LOSARTAN 25 MG TAB PO SCH (20:25)
[2016-07-18] MEDS ORDERED: SLF 3 ML SYR IV PRN (23:00)
[2016-07-18 23:59] VITALS: BP 115/63
[2016-07-19] MEDS: IPRATROPIUM 0.5MG/ALBUTEROL 2.5MG INH SOL UD 3ML (DUONEB)(J7620) NEB SCH ×4 (02:00→19:06)
[2016-07-19] MEDS: FUROSEMIDE 40 MG/4 ML VIAL (J1940) IV SCH ×2 (02:13→10:36)
[2016-07-19 04:45] VITALS: BP 102/61
[2016-07-19] MEDS: methylPREDNISolone INJ 125 MG/2 ML VIAL (J2930) IV SCH ×3 (05:23→20:47)
[2016-07-19] MEDS: SLF 3 ML SYR IV SCH ×3 (05:23→20:49)
[2016-07-19 05:30] LABS: EOS % 0.1 % (0.0-3.0); LARGE UNSTAINED CELL # 0.1 K/mm3 (0.0-0.4); LARGE UNSTAINED CELL % 0.7 % (0.0-4.0); LYMPH # 0.7 K/mm3 (1.5-4.5); LYMPH % 5.6 % (24.0-44.0); MEAN CORPUSCULAR HEMOGLOBIN 29.3 pg (27.0-33.0); MEAN CORPUSCULAR HGB CONC 32.7 g/dl (32.0-36.5); MEAN CORPUSCULAR VOLUME 89.7 fl (80.0-96.0); MONO # 0.6 K/mm3 (0.0-0.8); MONO % 4.4 % (0.0-5.0); NEUTROPHILS # 11.3 K/mm3 (1.8-7.7); NEUTROPHILS % 89.1 % (36.0-66.0); PLATELET COUNT, AUTOMATED 304 k/mm3 (150-450); RED CELL DISTRIBUTION WIDTH 12.4 % (11.5-14.5); WHITE BLOOD COUNT 12.6 K/mm3 (4.0-10.0)
[2016-07-19 05:49] LABS: ALBUMIN 2.7 GM/DL (3.2-5.2); ALBUMIN/GLOBULIN RATIO 0.64 (1.00-1.93); BILIRUBIN,TOTAL 0.6 MG/DL (0.2-1.0); CREATININE FOR GFR 1.1 MG/DL (0.55-1.02); GLOMERULAR FILTRATION RATE 53.2 (>45); MAGNESIUM LEVEL 2.1 MG/DL (1.8-2.4); POTASSIUM SERUM 3.4 MEQ/L (3.5-5.1); TOTAL PROTEIN 6.9 GM/DL (6.4-8.2)
--- NOTE | 2016-07-19 07:37 | ECGEPIP ---
Stationary ECG Study [facility] Test Date: 2016-07-18 Pat Name: NGUYEN SHANKAR Department: Room: [place] [address] Gender: F Ambulance Paramedic: KELLIE : 1950 Requested By: Juan Carlos Medellin Order Number: [id number] Reading MD: Jace Da Silva Measurements Intervals Standard Rate: 85 P: 39 ME: 142 QRS: 14 QRSD: 98 T: -32 QT: 416 QTc: 497 Interpretive Statements Normal sinus rhythm Nonspecific ST-T wave abnormalities No significant change when compared to prior tracing of 07/17/2016 Electronically Signed On 07-19-2016 7:37:34 EDT by Jace Da Silva
[2016-07-19 08:00] VITALS: BP 119/69
[2016-07-19] MEDS: PANTOPRAZOLE 40MG TAB (PROTONIX) PO SCH (08:11)
[2016-07-19] MEDS: HumaLOG INSULIN (NovoLOG) PER UNIT SC SCH ×4 (08:11→20:59)
[2016-07-19] MEDS: VITAMIN D 1,000 INTERNATIONAL UNITS TABLET PO SCH (08:11)
[2016-07-19] MEDS: OSELTAMIVIR PHOSPHATE 75 MG CAP (TAMIFLU) PO SCH ×2 (08:11→20:48)
[2016-07-19] MEDS: FLUoxetine 20 MG CAP PO SCH (08:11)
[2016-07-19] MEDS: ASPIRIN 81 MG ENTERIC TAB PO SCH (08:11)
[2016-07-19] MEDS: HEPARIN SOD (PORCINE) 5000 UNITS/ML VIAL SQ SCH ×2 (08:11→20:47)
[2016-07-19] MEDS: FLUTICASONE PROP 0.05% NASAL SPRAY 16 GM (FLONASE) SCH (08:12)
[2016-07-19] MEDS: ADVAIR DISKUS 250/50 INH PWD INH SCH ×2 (08:13→19:54)
[2016-07-19] MEDS ORDERED: POTASSIUM CHLORIDE 10 MEQ SR TABLET PO ONE (08:15)
[2016-07-19 12:00] VITALS: BP 122/68
[2016-07-19] MEDS: LevoFLOXacin IV 750 MG in APPROPRIATE DILUENT 1 EA IV SCH (14:03)
--- NOTE | 2016-07-19 15:09 | ECHO ---
DATE OF SERVICE: 07/18/2016 REFERRING PROVIDER: Dr. Juan Carlos Medellin PATIENT LOCATION: Room 3227. REASON FOR THE ECHOCARDIOGRAM: Shortness of breath. 2D MEASUREMENTS: IVS: 1.2 cm LV: 3.8 cm LVPW: 1.8 cm LA: 3.3 cm Aorta: 2.7 cm DOPPLER MEASUREMENTS: Peak velocity across the aortic valve: 1.4 m/s Peak velocity across the LVOT: 1.2 m/s Mitral E: 0.88 Mitral A: 1.0 with a ratio of 0.9 Maximum tricuspid valve velocity: 3.4 m/s 2D COMMENTS: 1. Normal left ventricular size, wall thickness, and a normal global left ventricular systolic function. The estimated left ventricular systolic ejection fraction is 60-65%. 2. Subjectively, the left atrium appeared to be mildly enlarged. The right atrium as well as the right ventricle appeared to be mildly enlarged on limited views. 3. The atrial septum appeared to be normal without evidence of defect or shunt. 4. Normal aortic root. 5. No pericardial effusion seen. 6. Minimally calcified aortic valve with normal leaflet excursion. Normal mitral valve and tricuspid valve. The pulmonic valve and proximal pulmonary artery branches were not well visualized. 7. The inferior vena cava subjectively appeared to be normal in size. DOPPLER: It detects trace to mild mitral regurgitation and moderate tricuspid regurgitation. The calculated pulmonary artery systolic pressure varied between 50 to 60 mmHg. Abnormal relaxation pattern noted across the mitral valve leaflets as well as the mitral valve annulus, consistent with grade 1 left ventricular diastolic dysfunction. IMPRESSION: 1. Normal global left ventricular systolic function. There are features of left ventricular diastolic dysfunction manifested by abnormal relaxation. 2. Aortic valve sclerosis without stenosis or aortic regurgitation. 3. Trace to mild mitral regurgitation. Subjectively, the left atrium appeared to be mildly enlarged. 4. Moderate tricuspid regurgitation with moderately severe pulmonary hypertension. The right heart chambers appeared to be mildly enlarged on limited views. 5. The study was technically mildly limited to poor acoustic window. MANAVD
--- NOTE | 2016-07-19 15:10 | IPN ---
DATE: 07/19/2016 Mrs. Kaylen Pratt was seen earlier this morning, she was sitting up in bed in no acute distress at rest. She stated that she thinks that her shortness of breath has improved. She denies any chest pain or palpitations. There is no report of fever or chills. There is no report of bleeding. There is no focal manifestation. She denies any nausea, vomiting, diarrhea, melena or hematemesis. On physical examination, the patient is alert and oriented, in no acute distress at rest, but with mild shortness of breath. Her last vital signs revealed a blood pressure of 119/69 with a pulse of 79, respirations 20 and maximum temperature is 99.3 degrees Fahrenheit with an oxygen saturation of 92% on 4 liters nasal cannula. She is in a negative fluid balance of 1.0 liters. Examination of the head is normocephalic, atraumatic. Neck is supple, I could not appreciate any jugular venous distention (JVD). The lungs revealed bilateral dry crackles. No wheezing. The heart examination revealed normal S1, S2. Without gallops. The PMI is not displaced. There is no rub. There is a systolic murmur grade 1-2/6 at the lower sternal border without any significant radiation. Abdomen is unremarkable. Extremities revealed +2 bilateral lower leg edema. Neurologic examination is negative for focal deficit. LABORATORIES: CBC done today revealed WBC of 12.6, hemoglobin 12.3, hematocrit 37.6 and platelets 304,000. BMP revealed a sodium of 135, potassium 3.4, chloride 94, CO2 30, BUN 35, creatinine 1.1, GFR 53.2, fasting glucose 369, calcium 8.0. Magnesium is 2.1. Liver enzymes revealed total bilirubin of 0.6, AST 12, ALT 21, alkaline phosphatase 105, total protein 6.9, albumin 2.7. Echocardiogram done yesterday revealed a normal global left ventricular systolic function, but with moderately severe pulmonary hypertension and dilated right heart chambers, with probably right ventricular systolic dysfunction. IMPRESSION AND PLAN: 1. Progressive shortness of breath in this 65-year-old woman. Upon talking to her, it seemed that she has been having shortness of breath for years that became progressive, but has deteriorated quickly, presumably because of the underlying flu versus upper respiratory tract infection. Her underlying lung disease is probably most likely the etiology of her shortness of breath. She has a normal LVEF with moderately severe pulmonary hypertension and probably right sided failure. Will continue current management for now. She will need to be evaluated by pulmonary. She might need further cardiac work up as outpatient. I will monitor her along with you over the weekend. Please do not hesitate to call if any questions. MICHELET
[2016-07-19 16:00] VITALS: BP 118/59
[2016-07-19 20:30] VITALS: BP 127/78
[2016-07-19] MEDS: LOSARTAN 25 MG TAB PO SCH (20:48)
[2016-07-19] MEDS: PRAVASTATIN 20 MG TAB PO SCH (20:48)
[2016-07-19] MEDS: MECLIZINE 25 MG TABLET PO SCH (20:48)
[2016-07-19] MEDS: LEVEMIR (INSULIN DETEMIR) 1 UNITS/0.01ML SC SCH (20:49)
--- NOTE | 2016-07-19 21:02 | IPN ---
DATE: 07/19/2016 SUBJECTIVE: This is a 65-year-old female who is seen and examined at bedside. Overnight, no further episodes of hypoxia. She maintained on 4 liters nasal cannula. She is on fluid restriction. Was able to go from her bedside to commode without difficulty with shortness of breath. No chest pain, shortness of breath, palpitations, nausea, vomiting, diarrhea, constipation, fevers, chills, night sweats, productive cough. She continues to report dry cough without any contents. The patient says that she is 50% close to her baseline, which is improved compared to admission. OBJECTIVE: VITAL SIGNS: Blood pressure 119/69, heart rate 79, temperature 97.7, respiration rate 20, pulse oximetry 92% on 4 liters nasal cannula. Intake and output the last 24 hours: 1560 and 2650, net negative of 1 liter. Since admission, she is net negative of 2 liters. GENERAL: Patient is lying in bed comfortable at a 45 degree angle, no acute respiratory or psychiatric distress. Able to talk in complete sentences. She breathes with her mouth, which reportedly is chronic for the patient. HEENT: Normocephalic, atraumatic. Moist oral mucosa. Extraocular movements intact. Pupils are equal and reactive to light. NECK: Supple. Trachea midline. No jugular venous distention (JVD). CHEST: Symmetric chest rise with no accessory muscle. Breath sounds with crackles in the left lung base, but diminished throughout all lung garcia. HEART : Distant but regular. Did not appreciate any murmurs, rubs, or gallops. ABDOMEN: Soft, nontender, nondistended. Bowel sounds present. No guarding. No rebound. EXTREMITIES: No pedal edema. Pedal pulses present bilaterally. NEUROLOGIC: Alert, awake, oriented times three, pleasant. No focal deficits appreciated. PSYCHIATRIC: Normal affect. LABORATORY DATA: WBC 12.6, hemoglobin 12.3, hematocrit 37.6, platelets 304. Sodium 135, potassium 3.4, chloride 94, carbon dioxide 30, BUN 35, creatinine 1.11, glucose 369, calcium 8, magnesium 2.1, total bilirubin 0.6. Liver profile normal. Albumin 2.1. Fingerstick glucose have been ranging high from 325 to 435 range. Chest x-ray completed yesterday showed chronic disease, stable examination. IMPRESSION AND PLAN: Ms. Pratt is a 65-year-old female with history of chronic obstructive pulmonary disease (COPD), hypertension, diabetes, prior tobacco use , who presented with shortness of breath. 1. Acute hypoxic respiratory failure, improving. After discussion with event attendant yesterday, we have started her on diuresis with Lasix. She appears to be making good urine output. Since admission, she is net negative at 2.1 liters. 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 Therefore, we have decreased her Lasix to 40 mg daily from 40 IV three times a day. Her BNP is also significantly less compared to admission. Chest x-ray performed did not show significant changes. It is possible that her acute respiratory decompensation was secondary to her viral infection and possible interstitial edema. In any case, she is reporting 50% improvement compared to admission, which is encouraging. We will continue with Tamiflu. She will be on day #2 of antiviral therapy today. We will continue with Solu-Medrol 60 mg every 8 hours, Levaquin 750 mg every 24 hours. 2. Elevated troponin and abnormal echocardiogram. She has already been evaluated by Dr. Medellin. We do not have a prior EKG in our record to compare. It is likely that this is a chronic change for her. Echocardiogram already was completed but result is pending at this time. We will followup with results. 3. Type 2 diabetes with hyperglycemia. Her fingersticks are increasing slowly. This is secondary to Solu-Medrol for her underlying pulmonary disease. We will put her on basal insulin for better glucose control. 4. Vitamin D deficiency. Continue vitamin D supplementation. 5. Leukocytosis. This is steady compared to yesterday. Likely secondary to steroid use. She remains afebrile. We will monitor for now. 6. Hypertension. Her blood pressure is reasonable at this time. She did have an episode this morning with systolic in the low 100s. She does have hold parameters for her medications. Continue to monitor for now. She is on losartan 25 mg at night and she is also now on Lasix. If her blood pressure continues to decrease, we will consider holding losartan. Hopefully, this pressure will improve now that we have adjusted her Lasix. 7. Hyperlipemia. Continue statin. 8. Depression. Continue Prozac 20 mg daily. 9. Gastroesophageal reflux disease (GERD). Continue pantoprazole 40 mg daily. 10. Deep vein thrombosis prophylaxis. Sequential compression devices (SCDs) and thromboembolic deterrent stockings (TEDS) and heparin. DISPOSITION: Because of her respiratory status and adjustment in her medication, she will be continued to be monitored in the progressive care unit (PCU). My preceptor for this patient encounter was Dr. Billingsley. The preceptor was physically present in the building during the encounter and was fully available. As needed, all aspects of the patient interview, examination, medical decision making process, and medical care plan development were reviewed and approved by the preceptor. The preceptor is aware and concurs with the plan as stated in the body of this note and will attest to such by his/her cosignature. MICHELET
[2016-07-19 23:59] VITALS: BP 123/69
[2016-07-20] MEDS: IPRATROPIUM 0.5MG/ALBUTEROL 2.5MG INH SOL UD 3ML (DUONEB)(J7620) NEB SCH ×4 (02:00→20:00)
[2016-07-20 04:45] VITALS: BP_SYST 114; BP_SYST 123; BP_DIAS 56; BP_DIAS 68
[2016-07-20] MEDS: methylPREDNISolone INJ 125 MG/2 ML VIAL (J2930) IV SCH (05:06)
[2016-07-20] MEDS: SLF 3 ML SYR IV SCH ×3 (05:07→21:39)
[2016-07-20 05:37] LABS: BASO % 0.1 % (0.0-1.0); EOS % 0.1 % (0.0-3.0); LARGE UNSTAINED CELL # 0.1 K/mm3 (0.0-0.4); LARGE UNSTAINED CELL % 0.8 % (0.0-4.0); LYMPH # 0.9 K/mm3 (1.5-4.5); LYMPH % 6.9 % (24.0-44.0); MEAN CORPUSCULAR HEMOGLOBIN 28.3 pg (27.0-33.0); MEAN CORPUSCULAR HGB CONC 31.1 g/dl (32.0-36.5); MEAN CORPUSCULAR VOLUME 90.8 fl (80.0-96.0); MONO # 0.6 K/mm3 (0.0-0.8); MONO % 4.9 % (0.0-5.0); NEUTROPHILS # 10.4 K/mm3 (1.8-7.7); NEUTROPHILS % 87.2 % (36.0-66.0); PLATELET COUNT, AUTOMATED 301 k/mm3 (150-450); RED CELL DISTRIBUTION WIDTH 12.2 % (11.5-14.5); WHITE BLOOD COUNT 11.9 K/mm3 (4.0-10.0)
[2016-07-20 05:54] LABS: ALBUMIN 2.6 GM/DL (3.2-5.2); ALBUMIN/GLOBULIN RATIO 0.65 (1.00-1.93); ALKALINE PHOSPHATASE 96 U/L (45-117); ALT/SGPT 16 U/L (12-78); ANION GAP 9 MEQ/L (8-16); AST/SGOT 7 U/L (15-37); BILIRUBIN,TOTAL 0.6 MG/DL (0.2-1.0); BLOOD UREA NITROGEN 36 MG/DL (7-18); CALCIUM LEVEL 8.3 MG/DL (8.8-10.2); CARBON DIOXIDE LEVEL 28 MEQ/L (21-32); CHLORIDE LEVEL 97 MEQ/L (98-107); CREATININE FOR GFR 0.97 MG/DL (0.55-1.02); GLOMERULAR FILTRATION RATE > 60.0 (>45); GLUCOSE, FASTING 354 MG/DL (80-110); MAGNESIUM LEVEL 2.3 MG/DL (1.8-2.4); SODIUM LEVEL 134 MEQ/L (136-145); TOTAL PROTEIN 6.6 GM/DL (6.4-8.2)
[2016-07-20] MEDS: HumaLOG INSULIN (NovoLOG) PER UNIT SC SCH ×4 (07:30→21:39)
[2016-07-20 08:00] VITALS: BP 127/70
[2016-07-20] MEDS: ADVAIR DISKUS 250/50 INH PWD INH SCH ×2 (08:44→20:11)
[2016-07-20] MEDS: ASPIRIN 81 MG ENTERIC TAB PO SCH (08:50)
[2016-07-20] MEDS: POTASSIUM CHLORIDE 10 MEQ SR TABLET PO SCH (08:50)
[2016-07-20] MEDS: PANTOPRAZOLE 40MG TAB (PROTONIX) PO SCH (08:50)
[2016-07-20] MEDS: FLUoxetine 20 MG CAP PO SCH (08:50)
[2016-07-20] MEDS: HEPARIN SOD (PORCINE) 5000 UNITS/ML VIAL SQ SCH ×2 (08:50→21:23)
[2016-07-20] MEDS: OSELTAMIVIR PHOSPHATE 75 MG CAP (TAMIFLU) PO SCH ×2 (08:50→21:23)
[2016-07-20] MEDS: VITAMIN D 1,000 INTERNATIONAL UNITS TABLET PO SCH (08:51)
[2016-07-20] MEDS: FLUTICASONE PROP 0.05% NASAL SPRAY 16 GM (FLONASE) SCH (08:51)
[2016-07-20] MEDS ORDERED: MOM 30ML SUSPENSION UDC PO PRN (10:15)
[2016-07-20] MEDS: DOCUSATE SODIUM 100 MG CAP PO SCH ×2 (10:53→21:21)
[2016-07-20 12:00] VITALS: BP 111/62
--- NOTE | 2016-07-20 12:11 | IPNPDOC ---
Subjective Date Seen The patient was seen on 07/20/16. Subjective Chief Complaint/HPI The patient is a 65-year-old female admitted with a reason for visit of COPD. General: Denies: Chills, Night Sweats Constitutional: Denies: Chills, Fever Eyes: Denies: Pain, Vision change ENT: Denies: Head Aches, Ear Pain Skin: Denies: Rash, Lesions Pulmonary: Reports: Dyspnea, Cough Cardiovascular: Denies: Chest Pain, Palpitations Gastrointestinal: Denies: Nausea, Vomiting, Abdominal Pain Genitourinary: Denies: Dysuria, Frequency Hematologic: Denies: Bruising, Bleeding Excessively Musculoskeletal: Denies: Neck Pain, Back Pain Objective Physical Examination General Exam: Positive: Alert, Cooperative, No Acute Distress ENT Exam: Positive: Atraumatic, Mucous membr. moist/pink Neck Exam: Negative: JVD Chest Exam: Positive: Rales (Faint Bibasilar velcro crackles ), Diminished, Negative: Wheezing Heart Exam: Positive: Rate Normal, Normal S1, Normal S2 Abdomen Exam: Positive: Soft, Negative: Tenderness Extremity Exam: Negative: Tenderness, Swelling Psych Exam: Positive: Oriented x 3 Assessment /Plan Plan/VTE VTE Prophylaxis Ordered?: Yes Plan Acute Hypoxic Respiratory failure 2/2 Influenza Virus in a patient with Known Hx of COPD CT Scan of the Chest notable for possible Underlying Interstitial Lung Disease. My colleague Dr. Fry did discuss the case with Pulmonary, and diuresis was recommended The patient did diurese a net negative of 2.3 L with IV Lasix She is currently being treated with Tamiflu for influenza, and Solu-Medrol with nebulizer treatments for underlying COPD The patient does report an improvement in her respiratory status at this time 2D ECHO notable for preserved EF, Diastolic Dysfunction and Pulm HTN-- Cardiology input appreciated We will continue to monitor her respiratory status and down titrate supplemental oxygen as tolerated Elevated troponin on Admission likely 2/2 Respiratory Insufficiency, Increased Work of Breathing EKG with no acute changes Troponin Peak: 0.17 2D ECHO as noted above Cardiology input appreciated Type 2 diabetes Continue insulin coverage Vitamin D deficiency Continue vitamin D supplementation. Hypertension, stable Continue current regimen Hyperlipemia Continue statin. Depression Continue Prozac 20 mg daily. Gastroesophageal reflux disease (GERD) Continue pantoprazole 40 mg daily. Deep vein thrombosis prophylaxis (TEDS) and heparin. Disposition-we will continue to monitor the patient's respiratory status, disposition pending clinical improvement VS, I&O, 24H, [facility] Vital Signs/I&O Vital Signs Date Time Temp Pulse Resp B/P (MAP) Pulse Ox O2 Delivery O2 Flow Rate FiO2 07/20/16 08:00 97.8 84 20 127/70 (89) 90 Nasal Cannula 3.0 07/17/16 16:00 28 I&O- Last 24 Hours up to 6 AM 07/20/16 06:00 Intake Total 1605 ml Output Total 1525 ml Balance 80 ml Laboratory Data 24H LABS Laboratory Tests 2 07/19/16 16:52: Bedside Glucose (Misc Panel) 401H 07/19/16 20:53: Bedside Glucose (Misc Panel) 373H 07/20/16 04:35: White Blood Count 11.9H, Red Blood Count 4.27, Hemoglobin 12.1, Hematocrit 38.8 , Mean Corpuscular Volume 90.8, Mean Corpuscular Hemoglobin 28.3, Mean Corpuscular Hemoglobin Concent 31.1L, Red Cell Distribution Width 12.2, Platelet Count 301, Neutrophils (%) (Auto) 87.2H, Lymphocytes (%) (Auto) 6.9L, Monocytes (%) (Auto) 4.9, Eosinophils (%) (Auto) 0.1, Basophils (%) (Auto) 0.1, Neutrophils # (Auto) 10.4H, Lymphocytes # (Auto) 0.9L, Monocytes # (Auto) 0.6, Eosinophils # (Auto) 0.0, Basophils # (Auto) 0.0, Large Unclassified Cells % 0.8 , Large Unclassified Cells # 0.1, Anion Gap 9, Glomerular Filtration Rate > 60.0 , Blood Urea Nitrogen 36H, Creatinine 0.97, Sodium Level 134L, Potassium Level 4.0, Chloride Level 97L, Carbon Dioxide Level 28, Calcium Level 8.3L, Aspartate Amino Transf (AST/SGOT) 7L, Alanine Aminotransferase (ALT/SGPT) 16, Alkaline Phosphatase 96, Total Bilirubin 0.6, Total Protein 6.6, Albumin 2.6L, Magnesium Level 2.3, Albumin/Globulin Ratio 0.65L CBC/BMP Laboratory Tests 07/20/16 04:35 Red Blood Count 4.27, Mean Corpuscular Volume 90.8, Mean Corpuscular Hemoglobin 28.3, Mean Corpuscular Hemoglobin Concent 31.1 L, Red Cell Distribution Width 12.2, Neutrophils (%) (Auto) 87.2 H, Lymphocytes (%) (Auto) 6.9 L, Monocytes (% ) (Auto) 4.9, Eosinophils (%) (Auto) 0.1, Basophils (%) (Auto) 0.1, Neutrophils # (Auto) 10.4 H, Lymphocytes # (Auto) 0.9 L, Monocytes # (Auto) 0.6, Eosinophils # (Auto) 0.0, Basophils # (Auto) 0.0, Calcium Level 8.3 L, Aspartate Amino Transf (AST/SGOT) 7 L, Alanine Aminotransferase (ALT/SGPT) 16, Alkaline Phosphatase 96, Total Bilirubin 0.6, Total Protein 6.6, Albumin 2.6 L Microbiology Microbiology 07/16/16 Blood Culture - Preliminary, Resulted No Growth after 72 hours. All specime... 07/16/16 Blood Culture - Preliminary, Resulted No Growth after 72 hours. All specime... 07/19/16 Gram Stain - Final, Resulted 07/19/16 Sputum Culture, Resulted Pending 07/17/16 Respiratory Virus Panel (PCR) ([facility]) - Final, Complete Influenza A H3 07/16/16 Influenza Virus Type A Antigen - Final, Complete 07/16/16 Influenza Virus Type B Antigen - Final, Complete RADHA DÍAZ MD Jul 20, 2016 12:11
[2016-07-20 16:00] VITALS: BP 124/60
[2016-07-20] MEDS: methylPREDNISolone INJ 40 MG/1 ML VIAL (J2920) IV SCH (17:16)
[2016-07-20] MEDS ORDERED: LevoFLOXacin 750 MG TABLET PO SCH (18:00)
--- NOTE | 2016-07-20 19:58 | IPN ---
DATE OF SERVICE: 07/20/2016 INPATIENT CARDIOLOGY PROGRESS NOTE: Mrs. Kaylen Pratt was seen early today. She was sitting up in bed in no acute distress at rest. She denies any chest pain or palpitations. She thinks that her cough and shortness of breath are improved. There is no report of fever or chills. There is no report of bleeding. She denies any focal manifestation. She has no nausea, vomiting, diarrhea, melena, or hematemesis. Earlier this morning, she was feeling more shortness of breath than usual and for this reason , her oxygen supplement was not on but since back on it, she has been doing much better. She is planning to start physical therapy. ON PHYSICAL EXAMINATION: Patient is alert and awake, in no acute distress at rest, and her vital signs when I saw her revealed a blood pressure of 127/70 with a pulse of 84, respirations 20, and her temperature is 97.8 degrees Fahrenheit with an oxygen saturation of 90-92% on 3 liters nasal cannula. She had a negative fluid balance of about 355 mL. Her weight today is 65.6 kg, and yesterday it was 66.4 kg. EXAMINATION OF THE HEAD, EARS, EYES, NOSE, AND THROAT: Atraumatic. NECK: Is supple. No jugular venous distention (JVD). No carotid bruits. The lungs reveal bilateral dry crackles. No wheezing. The heart examination revealed normal S1 and S2 without gallops. The point of maximal impulse (PMI) is not displaced. There is no rub. There is a systolic murmur grade 1-2 over 6 at the lower left sternal borer without any significant radiation. ABDOMEN: Is unremarkable. EXTREMITIES: Reveal no pedal edema. NEUROLOGICAL: Examination is negative for focal deficit. LABS: CBC revealed a WBC of 11.9, hemoglobin 12.1, hematocrit 38.8, and platelets 301,000. BMP revealed a sodium of 134, potassium 4.0, chloride 97, CO2 of 28, BUN 36, creatinine 0.97, GFR more than 60, fasting glucose 354, calcium 8.3. Serum magnesium is 2.3. ASSESSMENT: Mrs. Kaylen Pratt is stable from a cardiac point of view with a history of progressive shortness of breath that seems to be related to underlying lung disease that was aggravated by an upper respiratory tract infection versus flu. She has been stable and, slowly, her symptoms have improved. She understands that she will need oxygen to go home. She will need to be evaluated by pulmonary but, most likely, her symptoms will continue to slowly deteriorate over time. She might benefit from further cardiac workup and, upon discharge, we can make an appointment to see Dr. Medellin. He will come back tomorrow to see her. MICHELET
[2016-07-20 20:27] VITALS: BP 126/66
[2016-07-20] MEDS: MECLIZINE 25 MG TABLET PO SCH (21:21)
[2016-07-20] MEDS: PRAVASTATIN 20 MG TAB PO SCH (21:21)
[2016-07-20] MEDS: LOSARTAN 25 MG TAB PO SCH (21:22)
[2016-07-20] MEDS: LEVEMIR (INSULIN DETEMIR) 1 UNITS/0.01ML SC SCH (21:30)
[2016-07-20 22:00] VITALS: BP 167/86
[2016-07-21] MEDS: IPRATROPIUM 0.5MG/ALBUTEROL 2.5MG INH SOL UD 3ML (DUONEB)(J7620) NEB SCH ×4 (01:18→20:00)
[2016-07-21 06:00] VITALS: BP 157/96
[2016-07-21] MEDS: methylPREDNISolone INJ 40 MG/1 ML VIAL (J2920) IV SCH (06:18)
[2016-07-21] MEDS: SLF 3 ML SYR IV SCH ×3 (06:18→22:24)
[2016-07-21 08:04] LABS: BASO % 0.2 % (0.0-1.0); EOS % 0.2 % (0.0-3.0); LARGE UNSTAINED CELL # 0.1 K/mm3 (0.0-0.4); LARGE UNSTAINED CELL % 0.9 % (0.0-4.0); LYMPH # 1.8 K/mm3 (1.5-4.5); LYMPH % 10.3 % (24.0-44.0); MEAN CORPUSCULAR HEMOGLOBIN 28.4 pg (27.0-33.0); MEAN CORPUSCULAR HGB CONC 31.5 g/dl (32.0-36.5); MONO # 1.1 K/mm3 (0.0-0.8); MONO % 6.8 % (0.0-5.0); NEUTROPHILS # 12.8 K/mm3 (1.8-7.7); NEUTROPHILS % 81.6 % (36.0-66.0); PLATELET COUNT, AUTOMATED 329 k/mm3 (150-450); RED CELL DISTRIBUTION WIDTH 12.1 % (11.5-14.5); WHITE BLOOD COUNT 15.6 K/mm3 (4.0-10.0)
[2016-07-21 08:27] LABS: ALBUMIN 2.8 GM/DL (3.2-5.2); ALBUMIN/GLOBULIN RATIO 0.8 (1.00-1.93); BILIRUBIN,TOTAL 0.5 MG/DL (0.2-1.0); CALCIUM LEVEL 8.5 MG/DL (8.8-10.2); CREATININE FOR GFR 1.04 MG/DL (0.55-1.02); GLOMERULAR FILTRATION RATE 56.8 (>45); MAGNESIUM LEVEL 2.3 MG/DL (1.8-2.4); POTASSIUM SERUM 4.5 MEQ/L (3.5-5.1); TOTAL PROTEIN 6.3 GM/DL (6.4-8.2)
[2016-07-21] MEDS: ADVAIR DISKUS 250/50 INH PWD INH SCH ×2 (08:34→20:21)
[2016-07-21] MEDS: OSELTAMIVIR PHOSPHATE 75 MG CAP (TAMIFLU) PO SCH ×2 (09:00→22:21)
[2016-07-21] MEDS: FLUoxetine 20 MG CAP PO SCH (09:04)
[2016-07-21] MEDS: PANTOPRAZOLE 40MG TAB (PROTONIX) PO SCH (09:05)
[2016-07-21] MEDS: DOCUSATE SODIUM 100 MG CAP PO SCH ×2 (09:05→22:20)
[2016-07-21] MEDS: VITAMIN D 1,000 INTERNATIONAL UNITS TABLET PO SCH (09:06)
[2016-07-21] MEDS: ASPIRIN 81 MG ENTERIC TAB PO SCH (09:06)
[2016-07-21] MEDS: HEPARIN SOD (PORCINE) 5000 UNITS/ML VIAL SQ SCH ×2 (09:07→22:19)
[2016-07-21] MEDS: POTASSIUM CHLORIDE 10 MEQ SR TABLET PO SCH (09:07)
[2016-07-21] MEDS: FLUTICASONE PROP 0.05% NASAL SPRAY 16 GM (FLONASE) SCH (09:07)
[2016-07-21] MEDS: HumaLOG INSULIN (NovoLOG) PER UNIT SC SCH ×4 (09:08→22:35)
[2016-07-21 14:00] VITALS: BP 121/77
--- NOTE | 2016-07-21 14:38 | IPNPDOC ---
Subjective Date Seen The patient was seen on 07/21/16. Subjective Chief Complaint/HPI The patient is a 65-year-old female admitted with a reason for visit of COPD. General: Denies: Chills, Night Sweats Constitutional: Denies: Chills, Fever Eyes: Denies: Pain, Vision change ENT: Denies: Head Aches, Ear Pain Skin: Denies: Rash, Lesions Pulmonary: Reports: Dyspnea, Cough Cardiovascular: Denies: Chest Pain, Palpitations Gastrointestinal: Denies: Nausea, Vomiting Genitourinary: Denies: Dysuria, Frequency Hematologic: Denies: Bruising, Bleeding Excessively Objective Physical Examination General Exam: Positive: Alert, Cooperative, No Acute Distress ENT Exam: Positive: Atraumatic, Mucous membr. moist/pink Neck Exam: Negative: JVD Chest Exam: Positive: Diminished, Negative: Wheezing Heart Exam: Positive: Rate Normal, Normal S1, Normal S2 Abdomen Exam: Positive: Soft, Negative: Tenderness Extremity Exam: Negative: Tenderness, Swelling Psych Exam: Positive: Oriented x 3 Assessment /Plan Plan/VTE VTE Prophylaxis Ordered?: Yes Plan Acute Hypoxic Respiratory failure 2/2 Influenza Virus in a patient with Known Hx of COPD CT Scan of the Chest notable for possible Underlying Interstitial Lung Disease. My colleague Dr. Fry did discuss the case with Pulmonary, and diuresis was recommended The patient did diurese a net negative of 2.3 L with IV Lasix She is currently being treated with Tamiflu for influenza, and Solu-Medrol with nebulizer treatments for underlying COPD The patient does report an improvement in her respiratory status at this time 2D ECHO notable for preserved EF, Diastolic Dysfunction and Pulm HTN-- Cardiology input appreciated We will continue to monitor her respiratory status and down titrate supplemental oxygen as tolerated Elevated troponin on Admission likely 2/2 Respiratory Insufficiency, Increased Work of Breathing EKG with no acute changes Troponin Peak: 0.17 2D ECHO as noted above Cardiology input appreciated Type 2 diabetes Continue insulin coverage Vitamin D deficiency Continue vitamin D supplementation. Hypertension, stable Continue current regimen Hyperlipemia Continue statin. Depression Continue Prozac 20 mg daily. Gastroesophageal reflux disease (GERD) Continue pantoprazole 40 mg daily. Deep vein thrombosis prophylaxis (TEDS) and heparin. Disposition-we will continue to monitor the patient's respiratory status, PT consulted, disposition pending clinical improvement VS, I&O, 24H, Fishbone Vital Signs/I&O Vital Signs Date Time Temp Pulse Resp B/P (MAP) Pulse Ox O2 Delivery O2 Flow Rate FiO2 07/21/16 14:00 98.4 104 16 121/77 (92) 93 Nasal Cannula 3.0 07/17/16 16:00 28 I&O- Last 24 Hours up to 6 AM 07/21/16 06:00 Intake Total 630 ml Output Total 750 ml Balance -120 ml Laboratory Data 24H LABS Laboratory Tests 2 07/20/16 16:50: Bedside Glucose (Misc Panel) 284H 07/20/16 21:30: Bedside Glucose (Misc Panel) 331H 07/21/16 06:12: Bedside Glucose (Misc Panel) 283H 07/21/16 07:21: White Blood Count 15.6H, Red Blood Count 4.42, Hemoglobin 12.5, Hematocrit 39.7 , Mean Corpuscular Volume 90.0, Mean Corpuscular Hemoglobin 28.4, Mean Corpuscular Hemoglobin Concent 31.5L, Red Cell Distribution Width 12.1, Platelet Count 329, Neutrophils (%) (Auto) 81.6H, Lymphocytes (%) (Auto) 10.3L, Monocytes (%) (Auto) 6.8H, Eosinophils (%) (Auto) 0.2, Basophils (%) (Auto) 0.2 , Neutrophils # (Auto) 12.8H, Lymphocytes # (Auto) 1.8, Monocytes # (Auto) 1.1H , Eosinophils # (Auto) 0.0, Basophils # (Auto) 0.0, Large Unclassified Cells % 0.9, Large Unclassified Cells # 0.1, Anion Gap 12, Glomerular Filtration Rate 56.8, Blood Urea Nitrogen 28H, Creatinine 1.04H, Sodium Level 134L, Potassium Level 4.5, Chloride Level 97L, Carbon Dioxide Level 25, Calcium Level 8.5L, Aspartate Amino Transf (AST/SGOT) 10L, Alanine Aminotransferase (ALT/SGPT) 18, Alkaline Phosphatase 101, Total Bilirubin 0.5, Total Protein 6.3L, Albumin 2.8L , Magnesium Level 2.3, Albumin/Globulin Ratio 0.80L 07/21/16 11:43: Bedside Glucose (Misc Panel) 314H CBC/BMP Laboratory Tests 07/21/16 07:21 Red Blood Count 4.42, Mean Corpuscular Volume 90.0, Mean Corpuscular Hemoglobin 28.4, Mean Corpuscular Hemoglobin Concent 31.5 L, Red Cell Distribution Width 12.1, Neutrophils (%) (Auto) 81.6 H, Lymphocytes (%) (Auto) 10.3 L, Monocytes (% ) (Auto) 6.8 H, Eosinophils (%) (Auto) 0.2, Basophils (%) (Auto) 0.2, Neutrophils # (Auto) 12.8 H, Lymphocytes # (Auto) 1.8, Monocytes # (Auto) 1.1 H , Eosinophils # (Auto) 0.0, Basophils # (Auto) 0.0, Calcium Level 8.5 L, Aspartate Amino Transf (AST/SGOT) 10 L, Alanine Aminotransferase (ALT/SGPT) 18, Alkaline Phosphatase 101, Total Bilirubin 0.5, Total Protein 6.3 L, Albumin 2.8 L Microbiology Microbiology 07/16/16 Blood Culture - Final, Complete NO GROWTH AFTER 5 DAYS 07/16/16 Blood Culture - Final, Complete NO GROWTH AFTER 5 DAYS 07/19/16 Gram Stain - Final, Complete 07/19/16 Sputum Culture - Final, Complete Yeast Like Organism 07/17/16 Respiratory Virus Panel (PCR) ([facility]) - Final, Complete Influenza A H3 07/16/16 Influenza Virus Type A Antigen - Final, Complete 07/16/16 Influenza Virus Type B Antigen - Final, Complete RADHA DÍAZ MD July 21, 2016 14:38
[2016-07-21] MEDS: predniSONE 20 MG TAB PO SCH (15:49)
[2016-07-21 22:00] VITALS: BP 120/67
[2016-07-21] MEDS: MECLIZINE 25 MG TABLET PO SCH (22:20)
[2016-07-21] MEDS: LOSARTAN 25 MG TAB PO SCH (22:20)
[2016-07-21] MEDS: PRAVASTATIN 20 MG TAB PO SCH (22:21)
[2016-07-21] MEDS: LEVEMIR (INSULIN DETEMIR) 1 UNITS/0.01ML SC SCH (22:22)
[2016-07-22] MEDS: IPRATROPIUM 0.5MG/ALBUTEROL 2.5MG INH SOL UD 3ML (DUONEB)(J7620) NEB SCH ×4 (01:29→19:27)
[2016-07-22 06:00] VITALS: BP 131/76
[2016-07-22] MEDS: SLF 3 ML SYR IV SCH ×3 (06:09→22:02)
[2016-07-22 07:30] LABS: BASO # 0.1 K/mm3 (0.0-0.2); BASO % 0.4 % (0.0-1.0); EOS % 0.4 % (0.0-3.0); LARGE UNSTAINED CELL # 0.1 K/mm3 (0.0-0.4); LYMPH # 1.6 K/mm3 (1.5-4.5); LYMPH % 11.1 % (24.0-44.0); MEAN CORPUSCULAR HEMOGLOBIN 29.4 pg (27.0-33.0); MEAN CORPUSCULAR HGB CONC 33.1 g/dl (32.0-36.5); MEAN CORPUSCULAR VOLUME 88.9 fl (80.0-96.0); MONO # 0.9 K/mm3 (0.0-0.8); MONO % 6.2 % (0.0-5.0); NEUTROPHILS % 80.9 % (36.0-66.0); PLATELET COUNT, AUTOMATED 331 k/mm3 (150-450); RED CELL DISTRIBUTION WIDTH 12.2 % (11.5-14.5); WHITE BLOOD COUNT 13.6 K/mm3 (4.0-10.0)
[2016-07-22] MEDS: ADVAIR DISKUS 250/50 INH PWD INH SCH ×2 (07:42→19:23)
[2016-07-22 07:57] LABS: ALBUMIN 2.3 GM/DL (3.2-5.2); ALBUMIN/GLOBULIN RATIO 0.66 (1.00-1.93); ALKALINE PHOSPHATASE 78 U/L (45-117); ALT/SGPT 15 U/L (12-78); ANION GAP 9 MEQ/L (8-16); AST/SGOT 8 U/L (15-37); BILIRUBIN,TOTAL 0.4 MG/DL (0.2-1.0); BLOOD UREA NITROGEN 21 MG/DL (7-18); CALCIUM LEVEL 8.3 MG/DL (8.8-10.2); CARBON DIOXIDE LEVEL 26 MEQ/L (21-32); CHLORIDE LEVEL 98 MEQ/L (98-107); CREATININE FOR GFR 0.82 MG/DL (0.55-1.02); GLOMERULAR FILTRATION RATE > 60.0 (>45); GLUCOSE, FASTING 305 MG/DL (80-110); MAGNESIUM LEVEL 1.8 MG/DL (1.8-2.4); POTASSIUM SERUM 4.4 MEQ/L (3.5-5.1); SODIUM LEVEL 133 MEQ/L (136-145); TOTAL PROTEIN 5.8 GM/DL (6.4-8.2)
[2016-07-22] MEDS: HEPARIN SOD (PORCINE) 5000 UNITS/ML VIAL SQ SCH ×2 (08:33→21:52)
[2016-07-22] MEDS: DOCUSATE SODIUM 100 MG CAP PO SCH ×2 (08:33→21:53)
[2016-07-22] MEDS: HumaLOG INSULIN (NovoLOG) PER UNIT SC SCH ×4 (08:33→21:54)
[2016-07-22] MEDS: ASPIRIN 81 MG ENTERIC TAB PO SCH (08:34)
[2016-07-22] MEDS: PANTOPRAZOLE 40MG TAB (PROTONIX) PO SCH (08:34)
[2016-07-22] MEDS: POTASSIUM CHLORIDE 10 MEQ SR TABLET PO SCH (08:34)
[2016-07-22] MEDS: VITAMIN D 1,000 INTERNATIONAL UNITS TABLET PO SCH (08:34)
[2016-07-22] MEDS: FLUoxetine 20 MG CAP PO SCH (08:34)
[2016-07-22] MEDS: predniSONE 20 MG TAB PO SCH (08:35)
[2016-07-22] MEDS: OSELTAMIVIR PHOSPHATE 75 MG CAP (TAMIFLU) PO SCH ×2 (08:36→21:55)
[2016-07-22] MEDS: FLUTICASONE PROP 0.05% NASAL SPRAY 16 GM (FLONASE) SCH (08:38)
--- NOTE | 2016-07-22 12:01 | IPNPDOC ---
Subjective Date Seen The patient was seen on 07/22/16. Subjective Chief Complaint/HPI The patient is a 65-year-old female admitted with a reason for visit of COPD. General: Denies: Chills, Night Sweats Constitutional: Denies: Chills, Fever Eyes: Denies: Pain, Vision change ENT: Denies: Head Aches, Ear Pain Skin: Denies: Rash, Lesions Pulmonary: Reports: Dyspnea, Cough Cardiovascular: Denies: Chest Pain, Palpitations Gastrointestinal: Denies: Nausea Genitourinary: Denies: Dysuria, Frequency Hematologic: Denies: Bruising, Bleeding Excessively Objective Physical Examination General Exam: Positive: Alert, Cooperative, No Acute Distress ENT Exam: Positive: Atraumatic, Mucous membr. moist/pink Neck Exam: Negative: JVD Chest Exam: Positive: Diminished, Negative: Wheezing Heart Exam: Positive: Rate Normal, Normal S1, Normal S2 Abdomen Exam: Positive: Soft, Negative: Tenderness Extremity Exam: Negative: Tenderness, Swelling Psych Exam: Positive: Oriented x 3 Assessment /Plan Plan/VTE VTE Prophylaxis Ordered?: Yes Plan Acute Hypoxic Respiratory failure 2/2 Influenza Virus in a patient with Known Hx of COPD CT Scan of the Chest notable for possible Underlying Interstitial Lung Disease. My colleague Dr. Fry did discuss the case with Pulmonary, and diuresis was recommended The patient did diurese a net negative of 2.3 L with IV Lasix She is s/p Tamiflu treatment for influenza, cont PO Prednisone with nebulizer treatments for underlying COPD The patient does report an improvement in her respiratory status at this time 2D ECHO notable for preserved EF, Diastolic Dysfunction and Pulm HTN-- Cardiology input appreciated We will continue to monitor her respiratory status and down titrate supplemental oxygen as tolerated Elevated troponin on Admission likely 2/2 Respiratory Insufficiency, Increased Work of Breathing EKG with no acute changes Troponin Peak: 0.17 2D ECHO as noted above Cardiology input appreciated Type 2 diabetes Continue insulin coverage Vitamin D deficiency Continue vitamin D supplementation. Hypertension, stable Continue current regimen Hyperlipemia Continue statin. Depression Continue Prozac 20 mg daily. Gastroesophageal reflux disease (GERD) Continue pantoprazole 40 mg daily. Deep vein thrombosis prophylaxis (TEDS) and heparin. Disposition-we will continue to monitor the patient's respiratory status, Physical therapy input noted--we'll continue to monitor for physical optimization. VS, I&O, 24H, Fishbone Vital Signs/I&O Vital Signs Date Time Temp Pulse Resp B/P (MAP) Pulse Ox O2 Delivery O2 Flow Rate FiO2 07/22/16 08:00 Nasal Cannula 3.0 07/22/16 06:00 96.8 101 15 131/76 (94) 93 07/17/16 16:00 28 I&O- Last 24 Hours up to 6 AM 07/22/16 06:00 Intake Total 960 ml Output Total 2300 ml Balance -1340 ml Laboratory Data 24H LABS Laboratory Tests 2 07/21/16 11:43: Bedside Glucose (Misc Panel) 314H 07/21/16 16:51: Bedside Glucose (Misc Panel) 273H 07/21/16 20:02: Bedside Glucose (Misc Panel) 286H 07/22/16 07:19: White Blood Count 13.6H, Red Blood Count 4.21, Hemoglobin 12.4, Hematocrit 37.4 , Mean Corpuscular Volume 88.9, Mean Corpuscular Hemoglobin 29.4, Mean Corpuscular Hemoglobin Concent 33.1, Red Cell Distribution Width 12.2, Platelet Count 331, Neutrophils (%) (Auto) 80.9H, Lymphocytes (%) (Auto) 11.1L, Monocytes (%) (Auto) 6.2H, Eosinophils (%) (Auto) 0.4, Basophils (%) (Auto) 0.4 , Neutrophils # (Auto) 11.0H, Lymphocytes # (Auto) 1.6, Monocytes # (Auto) 0.9H , Eosinophils # (Auto) 0.0, Basophils # (Auto) 0.1, Large Unclassified Cells % 1.0, Large Unclassified Cells # 0.1, Anion Gap 9, Glomerular Filtration Rate > 60.0, Blood Urea Nitrogen 21H, Creatinine 0.82, Sodium Level 133L, Potassium Level 4.4, Chloride Level 98, Carbon Dioxide Level 26, Calcium Level 8.3L, Aspartate Amino Transf (AST/SGOT) 8L, Alanine Aminotransferase (ALT/SGPT) 15, Alkaline Phosphatase 78, Total Bilirubin 0.4, Total Protein 5.8L, Albumin 2.3L, Magnesium Level 1.8, Albumin/Globulin Ratio 0.66L CBC/BMP Laboratory Tests 07/22/16 07:19 Red Blood Count 4.21, Mean Corpuscular Volume 88.9, Mean Corpuscular Hemoglobin 29.4, Mean Corpuscular Hemoglobin Concent 33.1, Red Cell Distribution Width 12.2 , Neutrophils (%) (Auto) 80.9 H, Lymphocytes (%) (Auto) 11.1 L, Monocytes (%) ( Auto) 6.2 H, Eosinophils (%) (Auto) 0.4, Basophils (%) (Auto) 0.4, Neutrophils # (Auto) 11.0 H, Lymphocytes # (Auto) 1.6, Monocytes # (Auto) 0.9 H, Eosinophils # (Auto) 0.0, Basophils # (Auto) 0.1, Calcium Level 8.3 L, Aspartate Amino Transf (AST/SGOT) 8 L, Alanine Aminotransferase (ALT/SGPT) 15, Alkaline Phosphatase 78, Total Bilirubin 0.4, Total Protein 5.8 L, Albumin 2.3 L Microbiology Microbiology 07/16/16 Blood Culture - Final, Complete NO GROWTH AFTER 5 DAYS 07/16/16 Blood Culture - Final, Complete NO GROWTH AFTER 5 DAYS 07/19/16 Gram Stain - Final, Complete 07/19/16 Sputum Culture - Final, Complete Yeast Like Organism 07/17/16 Respiratory Virus Panel (PCR) ([facility]) - Final, Complete Influenza A H3 07/16/16 Influenza Virus Type A Antigen - Final, Complete 07/16/16 Influenza Virus Type B Antigen - Final, Complete RADHA DÍAZ MD July 22, 2016 12:01
[2016-07-22 14:00] VITALS: BP 108/69
[2016-07-22] MEDS: MECLIZINE 25 MG TABLET PO SCH (21:52)
[2016-07-22 21:53] VITALS: BP 120/68
[2016-07-22] MEDS: LOSARTAN 25 MG TAB PO SCH (21:53)
[2016-07-22] MEDS: PRAVASTATIN 20 MG TAB PO SCH (21:53)
[2016-07-22] MEDS: LEVEMIR (INSULIN DETEMIR) 1 UNITS/0.01ML SC SCH (21:54)
[2016-07-22 22:00] VITALS: BP 120/68
[2016-07-23] MEDS: IPRATROPIUM 0.5MG/ALBUTEROL 2.5MG INH SOL UD 3ML (DUONEB)(J7620) NEB SCH ×3 (02:00→14:00)
[2016-07-23] MEDS: SLF 3 ML SYR IV SCH ×2 (04:04→14:00)
[2016-07-23 06:00] VITALS: BP 102/66
[2016-07-23 07:07] LABS: BASO # 0.1 K/mm3 (0.0-0.2); BASO % 0.6 % (0.0-1.0); EOS # 0.1 K/mm3 (0.0-0.50); EOS % 0.6 % (0.0-3.0); LARGE UNSTAINED CELL # 0.2 K/mm3 (0.0-0.4); LARGE UNSTAINED CELL % 1.2 % (0.0-4.0); LYMPH # 4.5 K/mm3 (1.5-4.5); MEAN CORPUSCULAR HEMOGLOBIN 29.3 pg (27.0-33.0); MEAN CORPUSCULAR VOLUME 88.7 fl (80.0-96.0); MONO # 1.2 K/mm3 (0.0-0.8); MONO % 6.5 % (0.0-5.0); NEUTROPHILS # 12.6 K/mm3 (1.8-7.7); NEUTROPHILS % 68.1 % (36.0-66.0); PLATELET COUNT, AUTOMATED 362 k/mm3 (150-450); RED CELL DISTRIBUTION WIDTH 12.1 % (11.5-14.5); WHITE BLOOD COUNT 18.4 K/mm3 (4.0-10.0)
[2016-07-23] MEDS: ADVAIR DISKUS 250/50 INH PWD INH SCH (07:12)
[2016-07-23 07:26] LABS: ALBUMIN 2.5 GM/DL (3.2-5.2); ALBUMIN/GLOBULIN RATIO 0.76 (1.00-1.93); ALKALINE PHOSPHATASE 77 U/L (45-117); ALT/SGPT 16 U/L (12-78); ANION GAP 9 MEQ/L (8-16); AST/SGOT 7 U/L (15-37); BILIRUBIN,TOTAL 0.4 MG/DL (0.2-1.0); BLOOD UREA NITROGEN 21 MG/DL (7-18); CALCIUM LEVEL 8.6 MG/DL (8.8-10.2); CARBON DIOXIDE LEVEL 29 MEQ/L (21-32); CHLORIDE LEVEL 98 MEQ/L (98-107); CREATININE FOR GFR 0.77 MG/DL (0.55-1.02); GLOMERULAR FILTRATION RATE > 60.0 (>45); GLUCOSE, FASTING 160 MG/DL (80-110); MAGNESIUM LEVEL 1.6 MG/DL (1.8-2.4); POTASSIUM SERUM 4.2 MEQ/L (3.5-5.1); SODIUM LEVEL 136 MEQ/L (136-145); TOTAL PROTEIN 5.8 GM/DL (6.4-8.2)
[2016-07-23] MEDS: HEPARIN SOD (PORCINE) 5000 UNITS/ML VIAL SQ SCH (08:09)
[2016-07-23] MEDS: ASPIRIN 81 MG ENTERIC TAB PO SCH (08:10)
[2016-07-23] MEDS: VITAMIN D 1,000 INTERNATIONAL UNITS TABLET PO SCH (08:10)
[2016-07-23] MEDS: HumaLOG INSULIN (NovoLOG) PER UNIT SC SCH ×2 (08:10→13:27)
[2016-07-23] MEDS: FLUoxetine 20 MG CAP PO SCH (08:10)
[2016-07-23] MEDS: predniSONE 20 MG TAB PO SCH (08:10)
[2016-07-23] MEDS: POTASSIUM CHLORIDE 10 MEQ SR TABLET PO SCH (08:10)
[2016-07-23] MEDS: DOCUSATE SODIUM 100 MG CAP PO SCH (08:10)
[2016-07-23] MEDS: PANTOPRAZOLE 40MG TAB (PROTONIX) PO SCH (08:10)
[2016-07-23] MEDS: FLUTICASONE PROP 0.05% NASAL SPRAY 16 GM (FLONASE) SCH (08:11)
[2016-07-23] MEDS ORDERED: PRED10TA PO (11:35)
[2016-07-23] MEDS ORDERED: ALBU17IN2 INH (11:35)
--- NOTE | 2016-07-23 13:25 | DS.PDOC ---
Discharge Summary General Date of Admission Jul 16, 2016 at 14:35 Date of Discharge 07/23/16 Specialist/Consultants Involve Dr. Medellin and Dr. Isabel of Cardiology Discharge Summary PROCEDURES PERFORMED DURING STAY: None. ADMITTING DIAGNOSES: 1. . Acute hypoxic respiratory failure secondary to influenza A, possible underlying interstitial lung disease 2. . Elevated troponin level 3. . Diabetes DISCHARGE DIAGNOSES: 1. . Acute hypoxic respiratory failure secondary to influenza A, possible underlying interstitial lung disease 2. . Elevated troponin level 3. . Diabetes COMPLICATIONS/CHIEF COMPLAINT: COPD. HISTORY OF PRESENT ILLNESS: . 65-year-old female with past medical history of ?COPD, vitamin D deficiency, GERD, dyslipidemia, diabetes, hypertension, vertigo, irritable bowel syndrome, and arthritis presented to the ER with a chief complaint of increasing shortness of breath with active cough over the last 1 week. The patient stated that she had been having progressively worsening shortness of breath for the past 3+ years. However, over the last 1 week she states that she has been feeling short of breath even at rest. The patient denied any lower extremity edema, orthopnea, PND, or any chest pain/palpitations. The patient was admitted to the hospital service for further evaluation and monitoring. During the patient's hospitalization, a chest x-ray was notable for bibasilar atelectasis. A CT angiogram of the chest was ordered and revealed severe fibrosis. Respiratory panel was noted to be positive for Influenza A. The patient was subsequent started on Tamiflu. In addition, the patient was also started on steroid therapy and nebulizers. Since admission, the patient's respiratory status has improved significantly. Upon ambulation the patient is noted to require 2 L of oxygen via nasal cannula. The patient states that she has been having dyspnea for several years now but has never had a formal workup. I advised the patient to follow-up with her primary care doctor and obtain a pulmonology referral with pulmonary function testing to be obtained as well to formally diagnose the patient's underlying lung disease. In addition, the patient did have an elevated troponin level (peak 0.17). There were no acute EKG changes noted. A cardiology consult was placed, and this was attributed to the patient's respiratory distress. The patient was advised to follow-up as an outpatient for possible ischemic workup. DISCHARGE MEDICATIONS: Please see below. ALLERGIES: Please see below. PHYSICAL EXAMINATION ON DISCHARGE: VITAL SIGNS: Please see below. General Exam: Positive: Alert, Cooperative, No Acute Distress ENT Exam: Positive: Atraumatic, Mucous membr. moist/pink Neck Exam: Negative: JVD Chest Exam: Positive: Diminished, Negative: Wheezing Heart Exam: Positive: Rate Normal, Normal S1, Normal S2 Abdomen Exam: Positive: Soft, Negative: Tenderness Extremity Exam: Negative: Tenderness, Swelling Psych Exam: Positive: Oriented x 3 LABORATORY DATA: Please see below. IMAGING: CT ANGIO CHEST: TECHNIQUE: Axial contrast enhanced images from the thoracic inlet to the upper abdomen using 100 mL Isovue 370 intravenous contrast material with multiplanar reformations. Extensive ground-glass opacities and interstitial opacities are seen bilaterally with evidence of peripheral honeycombing especially inferiorly and chronic fibrosis. There are bilateral bronchiectasis. The findings may simply be on a basis of chronic severe fibrosis but some degree of acute superimposed infiltrate cannot totally be excluded. There is no pleural or pericardial effusion. The heart does not appear to be significantly enlarged. There is no evidence of pulmonary embolism or aortic dissection. Thoracic aorta is normal in caliber. Small scattered lymph nodes are seen without significant mediastinal or hilar adenopathy. Tiny hypodensity in the left lobe of the liver may represent a tiny cyst but it is too small to characterize as it is less than 1 cm in diameter. 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 There is a left renal cyst. IMPRESSION: No evidence of pulmonary embolism. Severe fibrosis as discussed in detail above. Superimposed infiltrate in the lungs cannot totally be excluded. Chest one-view HISTORY: Cough Comparison: None Increased density is present in the lower lobes consistent with bibasilar atelectasis or infiltrates. The heart is normal in size. The pulmonary vasculature is normal in appearance. Impression: Bibasilar atelectasis or infiltrates. PROGNOSIS: Medically stable ACTIVITY: As tolerated. DIET: . Carb consistent diet DISCHARGE PLAN: DISPOSITION: . Home DISCHARGE INSTRUCTIONS: 1. . Follow with primary care physician within one to 2 weeks for further evaluation and management 2. . Obtain outpatient pulmonary referral 3. . Obtain pulmonary function tests DISCHARGE CONDITION: Stable. TIME SPENT ON DISCHARGE: Greater than 30 minutes. Vital Signs/I&Os Vital Signs Date Time Temp Pulse Resp B/P (MAP) Pulse Ox O2 Delivery O2 Flow Rate FiO2 07/23/16 12:34 92 Nasal Cannula 2.0 07/23/16 06:00 99.0 78 18 102/66 (78) 07/17/16 16:00 28 I&O- Last 24 Hours up to 6 AM 07/23/16 06:00 Intake Total 1380 ml Output Total 3050 ml Balance -1670 ml Laboratory Data Labs 24H Laboratory Tests 2 07/22/16 16:32: Bedside Glucose (Misc Panel) 242H 07/22/16 20:37: Bedside Glucose (Misc Panel) 336H 07/23/16 06:28: White Blood Count 18.4H, Red Blood Count 4.37, Hemoglobin 12.8, Hematocrit 38.8 , Mean Corpuscular Volume 88.7, Mean Corpuscular Hemoglobin 29.3, Mean Corpuscular Hemoglobin Concent 33.0, Red Cell Distribution Width 12.1, Platelet Count 362, Neutrophils (%) (Auto) 68.1H, Lymphocytes (%) (Auto) 23.0L, Monocytes (%) (Auto) 6.5H, Eosinophils (%) (Auto) 0.6, Basophils (%) (Auto) 0.6 , Neutrophils # (Auto) 12.6H, Lymphocytes # (Auto) 4.5, Monocytes # (Auto) 1.2H , Eosinophils # (Auto) 0.1, Basophils # (Auto) 0.1, Large Unclassified Cells % 1.2, Large Unclassified Cells # 0.2, Anion Gap 9, Glomerular Filtration Rate > 60.0, Blood Urea Nitrogen 21H, Creatinine 0.77, Sodium Level 136, Potassium Level 4.2, Chloride Level 98, Carbon Dioxide Level 29, Calcium Level 8.6L, Aspartate Amino Transf (AST/SGOT) 7L, Alanine Aminotransferase (ALT/SGPT) 16, Alkaline Phosphatase 77, Total Bilirubin 0.4, Total Protein 5.8L, Albumin 2.5L, Magnesium Level 1.6L, Albumin/Globulin Ratio 0.76L 07/23/16 12:14: Bedside Glucose (Misc Panel) 231H CBC/BMP Laboratory Tests 07/23/16 06:28 Red Blood Count 4.37, Mean Corpuscular Volume 88.7, Mean Corpuscular Hemoglobin 29.3, Mean Corpuscular Hemoglobin Concent 33.0, Red Cell Distribution Width 12.1 , Neutrophils (%) (Auto) 68.1 H, Lymphocytes (%) (Auto) 23.0 L, Monocytes (%) ( Auto) 6.5 H, Eosinophils (%) (Auto) 0.6, Basophils (%) (Auto) 0.6, Neutrophils # (Auto) 12.6 H, Lymphocytes # (Auto) 4.5, Monocytes # (Auto) 1.2 H, Eosinophils # (Auto) 0.1, Basophils # (Auto) 0.1, Calcium Level 8.6 L, Aspartate Amino Transf (AST/SGOT) 7 L, Alanine Aminotransferase (ALT/SGPT) 16, Alkaline Phosphatase 77, Total Bilirubin 0.4, Total Protein 5.8 L, Albumin 2.5 L FSBS Laboratory Tests Test 07/22/16 16:32 07/22/16 20:37 07/23/16 12:14 Range/Units Bedside Glucose (Misc Panel) 242 336 231 80-115 MG/DL Microbiology Microbiology 07/16/16 Blood Culture - Final, Complete NO GROWTH AFTER 5 DAYS 07/16/16 Blood Culture - Final, Complete NO GROWTH AFTER 5 DAYS 07/19/16 Gram Stain - Final, Complete 07/19/16 Sputum Culture - Final, Complete Yeast Like Organism 07/17/16 Respiratory Virus Panel (PCR) (CARITO) - Final, Complete Influenza A H3 07/16/16 Influenza Virus Type A Antigen - Final, Complete 07/16/16 Influenza Virus Type B Antigen - Final, Complete Discharge Medications Scheduled (Asmanex 7 Metered Doses) 110 Mcg/Inh Aer, 2 PUFFS INH BID, (Reported) Albuterol Sulfate (Proventil Hfa) 167 Puff/6.7 Gm Aers, 2 PUFFS INH BID Cholecalciferol (Vitamin D) 2,000 Unit Tab, 2,000 UNIT PO DAILY, (Reported) Cranberry (Cranberry Fruit Concentra) 12,600 Mg Cap, 12,600 MG PO DAILY, ( Reported) Dicyclomine HCl (Bentyl) 20 Mg Tab, 20 MG PO TID, (Reported) Fluoxetine Hcl (Fluoxetine) 20 Mg Cap, 20 MG PO DAILY, (Reported) Fluticasone Propionate (Fluticasone Propionate 0.05%) 120 Howell/16 Gm Naspr, 1 SPRAY NA DAILY, (Reported) PER NOSTRIL Losartan Potassium (Losartan Potassium) 25 Mg Tab, 25 MG PO QHS, (Reported) Meclizine HCl (Meclizine 25) 25 Mg Tab, 50 MG PO QHS, (Reported) Metformin Hydrochloride (Metformin HCl) 500 Mg Tab, 500 MG PO QHS, (Reported) Naproxen (Naproxen) 500 Mg Tab, 500 MG PO BID, (Reported) Omeprazole (Omeprazole) 20 Mg Cap, 20 MG PO BID, (Reported) Pravastatin Sodium (Pravastatin Sodium) 80 Mg Tab, 80 MG PO QHS, (Reported) Prednisone (Prednisone) 10 Mg Tab, 10 MG PO ASDIRECTED Allergies Coded Allergies: Baclofen (Verified Allergy, Unknown, 07/16/16) Penicillins (Verified Allergy, Unknown, 07/16/16) RADHA DÍAZ MD July 23, 2016 13:25
[2016-07-23] MEDS ORDERED: ALBUTEROL 90 MCG/ACT 8GM HFA INHALER INH PRN (14:30)
== END 2016-07-23 14:55 | disposition home or self-care (01) | DRG 113 ==
LOC: EDBD 10:16 → M ED 11:38 → M ED INP 14:35 → M PCU 07-17 23:18 → M MS5PR 07-20 20:41
PROVIDERS: ADMIT Internal Medicine; ATTEND Internal Medicine
DX: J10.1 Influenza due to other identified influenza virus with other respiratory manifestations (principal); J96.01 Acute respiratory failure with hypoxia; J44.1 Chronic obstructive pulmonary disease with (acute) exacerbation; E55.9 Vitamin D deficiency, unspecified; E11.65 Type 2 diabetes mellitus with hyperglycemia; K58.9 Irritable bowel syndrome, unspecified; I10 Essential (primary) hypertension; R79.89 Other specified abnormal findings of blood chemistry; F32.9 Major depressive disorder, single episode, unspecified; K21.9 Gastro-esophageal reflux disease without esophagitis; E78.5 Hyperlipidemia, unspecified; Z79.84 Long term (current) use of oral hypoglycemic drugs; Z79.52 Long term (current) use of systemic steroids; Z88.0 Allergy status to penicillin; Z88.1 Allergy status to other antibiotic agents; Z90.710 Acquired absence of both cervix and uterus; Z87.891 Personal history of nicotine dependence; Z79.899 Other long term (current) drug therapy

== ENCOUNTER 2016-09-06 20:15 | Emergency (ER) | payer BC ==
[~2016-09-06] VITALS: Ht 162.6 cm; Wt 81.0 kg
[~2016-09-06 20:15] MED LIST: ALBU17IN2 INH; ASMA110A; BENT20TA PO; CRAN1260 PO; DICY20TA11; FLUO20CA19; FLUO20CA8 PO; FLUT1SPR2; LOSA25TA8; LOSA25TA8 PO; MECL-68; MECL-86 PO; METF500T13; METF500T13 PO; NAPR500T3; NAPR500T3 PO; OMEP20CA3; OMEP20CA3 PO; PRAV80TA2; PRAV80TA2 PO; PRED10TA2 PO; VITA200015 PO; [UNRECOGNIZED DRUG - CODE] INH
[2016-09-06] MEDS ORDERED: SODIUM BICARBONATE 8.4% INJ 50 ML SYRINGE ONE (20:52)
[2016-09-06] MEDS ORDERED: EPINEPHrine 1MG/10ML SYRINGE 1.5IN ONE (20:52)
== END 2016-09-07 00:45 | disposition expired ==
LOC: EDBD 20:15 → M ED 20:51
DX: I46.9 Cardiac arrest, cause unspecified (principal); Z79.51 Long term (current) use of inhaled steroids; Z79.899 Other long term (current) drug therapy; Z88.0 Allergy status to penicillin; Z88.8 Allergy status to other drugs, medicaments and biological substances